=== PATIENT | male | born 1955 | race Caucasian/White ===

== ENCOUNTER → 2017-08-08 11:20 | Outpatient (CLI) | payer BC, SELFPAY ==
[2017-08-08 12:42] LABS: Anion Gap 7 (5-15); BUN 13 mg/dL (7-18); BUN/Creat Ratio 15.5 RATIO (10-20); Calcium,Total 9.2 mg/dL (8.5-10.1); Chloride 107 mmol/L (98-107); Cholesterol 200 mg/dL (200); Creatinine, Serum 0.84 mg/dL (0.70-1.30); EST Glomerular Filtration Rate 98 mL/min (>60); Est Glom Filt Rate - Afr Amer 119 mL/min (>60); Glucose 93 mg/dL (74-106); High Density Lipoprotein 50 mg/dL; PSA,Total - Annual Screen 3.07 ng/mL (0.00-4.00); Potassium 3.9 mmol/L (3.5-5.1); Sodium Level 142 mmol/L (136-145); Triglycerides 79 mg/dL; Very Low Density Lipoprotein 16 mg/dL (5-40)
== END ==
PROVIDERS: Family Provider Family Medicine; PCP Family Medicine; Visit Provider Family Medicine
DX: I10 Essential (primary) hypertension (principal); Z13.220 Encounter for screening for lipoid disorders; Z12.5 Encounter for screening for malignant neoplasm of prostate
CPT/HCPCS: 36415; 80048; 80061; 84153; G0103

== ENCOUNTER → 2017-10-15 12:52 | Outpatient (CLI) | payer BC, SELFPAY ==
--- NOTE | 2017-10-15 12:54 | RAD_ITS ---
STUDY: X-RAY - RIGHT KNEE REASON FOR EXAM: Male, 62 years old. Chronic pain. TECHNIQUE: 4 view(s) of the knee. COMPARISON: None. FINDINGS: Normal visualized distal femur. Normal visualized proximal tibia and fibula. Normal proximal tibiofibular articulation. There is no acute fracture, dislocation or destructive osseous pathology. 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 Normal medial femorotibial compartment. Normal lateral femorotibial compartment. 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 There is no demonstrated joint effusion. The soft tissue structures are unremarkable. RAD/Knee 4 or More Views IMPRESSION: Probable bipartite patella. There is degenerative changes of the knee. Electronically Signed: Edison Aleman DO at 18:10 EDT Tel [phone], Service support ,
[2017-10-15 14:03] LABS: Pathologist Comment May follow
[2017-10-15 14:38] LABS: RBC /Synovial Fluid 0.005 10^6/uL (0); Synovial Fld Mononuclear WBC % 14.5 %; Synovial Fld Polynuclear WBC % 85.5 %
[2017-10-15 15:00] LABS: AUTO B FLUID DILUENT BKGD CT WBC <0.1 RBC <0.01 (W<.1,R<.01); Appearance /Synovial Fluid Cloudy (CLEAR); Color / Synovial Fluid Yellow (Pale Yellow); Source / Synovial Fluid RIGHT KNEE; Source- Body Fluid SYNOVIAL
[2017-10-15 15:26] LABS: Lymph 5 %; Monocyte /Synovial Fluid 6 %; Neutrophil 78 % (0-25); Other Cell /Synovial Fluid 11 %
[2017-10-15 15:27] LABS: Body Fluid QC Type(s) BF1Q,BF2Q
[2017-10-16 09:54] LABS: Pathologist Review Reviewed
== END ==
PROVIDERS: Family Provider Family Medicine; PCP Family Medicine; Visit Provider Orthopaedic Surgery
DX: M25.461 Effusion, right knee (principal); G89.29 Other chronic pain
CPT/HCPCS: 73564; 87070; 87075; 87205; 89050; 89051; 89060

== ENCOUNTER → 2017-11-07 10:42 | Outpatient (CLI) | payer BC, SELFPAY ==
[2017-11-07 12:55] LABS: Amphetamine Urine VISTA NEGATIVE (<1000 ng/mL); Barbiturate Urine VISTA NEGATIVE (< 200 ng/mL); Benzodiazepine Urine VISTA NEGATIVE (< 200 ng/mL); Cocaine Urine VISTA NEGATIVE (< 300 ng/mL); Ecstacy Urine VISTA NEGATIVE (< 500 ng/mL); Methadone Urine VISTA NEGATIVE (< 300 ng/mL); PCP Urine VISTA NEGATIVE (< 25 ng/mL); THC Urine VISTA NEGATIVE (< 50 ng/mL); Vista UDS pH Range 6
== END ==
PROVIDERS: Family Provider Family Medicine; PCP Family Medicine; Visit Provider Anesthesiology Pain Medicine
DX: F11.20 Opioid dependence, uncomplicated (principal)
CPT/HCPCS: 80307

== ENCOUNTER → 2018-06-11 16:24 | Outpatient (CLI) | payer BC, SELFPAY ==
[2017-10-12 08:33] VITALS: BMI 31.1
--- NOTE | 2018-06-11 16:27 | RAD_ITS ---
STUDY: X-RAY CHEST REASON FOR EXAM: Male, 63 years old. Low pulse oximetry. Cough. Shortness of breath. TECHNIQUE: PA and lateral views of the chest. COMPARISON: May 01, 2014. FINDINGS: There is minimally improved inspiratory effort. There is no new mass or infiltrate. Stable calcified granulomata are seen in the left lung base. There is no demonstrated pleural abnormality. Normal size heart. Normal mediastinum and frank. Normal visualized pulmonary arteries. Normal visualized aortic arch and descending thoracic aorta. No visualized osseous changes. There has been intervertebral anterior fusion of lower cervical spine. There is no demonstrated abnormality of the visualized soft tissue structures of the upper abdomen. RAD/Chest PA and Lateral IMPRESSION: 1. Old granulomatous disease without acute cardiopulmonary process. 2. Interval anterior fusion lower cervical spine. Electronically Signed: Edison Aleman DO at 16:48 EST Tel [phone], Service support ,
--- OUTSIDE RECORDS SUMMARY | 2018-07-28 23:36 | XMS RPT_ITS ---
:1955 Author Organization OHIP Support Name Relationship Address Phone MARYSHILANDEN Unavailable [address] + [place] [address] R Unavailable Unavailable Unavailable QUIANA CURTIS Unavailable [address] + [place] [address] MARY, LANDEN Unavailable [address] [phone] [place] [address] R Unavailable Unavailable Unavailable QUIANA CURTIS Unavailable [address] + [place] [address] MARY, LANDEN Unavailable [address] [phone] [place] [address] R Unavailable Unavailable Unavailable QUIANA CURTIS Unavailable [address] + [place] [address] MARY, LANDEN Unavailable [address] [phone] [place] [address] R Unavailable Unavailable Unavailable QUIANA CURTIS Unavailable [address] + [place] [address] MARY, LANDEN Unavailable [address] [phone] [place] [address] R Unavailable Unavailable Unavailable QUIANA CURTIS Unavailable [address] + [place] [address] MARY, LANDEN Unavailable [address] [phone] [place] [address] R Unavailable Unavailable Unavailable QUIANA CURTIS Unavailable [address] + [place] [address] MARY, LANDEN Unavailable [address] [phone] [place] [address] R Unavailable Unavailable Unavailable QUIANA CURTIS Unavailable [address] + [place] [address] Care Team Providers Name Role Phone Natalia Flores Attending Unavailable Sandra, Natalia Referring Unavailable Quijano, Cirilo Primary Care Unavailable Quijano, Cirilo Attending Unavailable Quijano, Cirilo Primary Care Unavailable Dennis, Sandeep Attending Unavailable Quijano, Cirilo Referring Unavailable Quijano, Cirilo Primary Care Unavailable Dennis, Sandeep Attending Unavailable Dennis, Sandeep Referring Unavailable Quijano, Cirilo Primary Care Unavailable Dennis, Sandeep Attending Unavailable Quijano, Cirilo Referring Unavailable Basali, Belem Attending Unavailable Basali, Tasneemman Referring Unavailable Quijano, Cirilo Primary Care Unavailable TerranceBk Attending Unavailable Quijano, Cirilo Referring Unavailable Quijano, Cirilo Primary Care Unavailable PROBLEMS PROBLEMS DATE TYPE CONDITION / CODE ATTENDING STATUS SOURCE 11/07/2017 Unknown F11.20 - Opioid Basali, Ayman Active [place] dependence, Community uncomplicated / Hospital F11.20(ICD-10) Repository 10/15/2017 Unknown M25.461 - Effusion, Sandeep Collins Active [place] right knee / [facility] M25.461(ICD-10) Hospital Repository 10/12/2017 Unknown M17.11 - Unilateral Bk Carlos Active [place] primary [facility] osteoarthritis, Hospital right knee / Repository M17.11(ICD-10) 09/20/2017 Unknown I10 - Essential Cirilo Quijano Active [place] (primary) [facility] hypertension / Hospital I10(ICD-10) Repository PROCEDURES PROCEDURES No Procedure Records FoundRESULTS RESULTS CHEST PA AND LATERAL Observed: 06/11/2018 Status: F Source: [place] 4:27 PM [facility] REPOSITORY [facility] Imaging Services [address] [place] [address] Chest PA and Lateral MR#: [id number] Acct: [id number] Name: GEETA CURTIS Rep #: [id number] : 1955 M 63 From: Edison Aleman DO PCP: Cirilo Quijano MD Status: REG CLI Study: Chest PA and Lateral Date of Exam: 06/11/18 Exam# [id number] Ordering Dr: Natalia Flores AVIATION ORDNANCE OFFICER-C STUDY: X-RAY CHEST REASON FOR EXAM: Male, 63 years old. Low pulse oximetry. Cough. Shortness of breath. TECHNIQUE: PA and lateral views of the chest. COMPARISON: May 01, 2014. FINDINGS: There is minimally improved inspiratory effort. There is no new mass or infiltrate. Stable calcified granulomata are seen in the left lung base. There is no demonstrated pleural abnormality. Normal size heart. Normal mediastinum and frank. Normal visualized pulmonary arteries. Normal visualized aortic arch and descending thoracic aorta. No visualized osseous changes. There has been intervertebral anterior fusion of lower cervical spine. There is no demonstrated abnormality of the visualized soft tissue structures of the upper abdomen. RAD/Chest PA and Lateral IMPRESSION: 1. Old granulomatous disease without acute cardiopulmonary process. 2. Interval anterior fusion lower cervical spine. Electronically Signed: Edison Aleman DO at 16:48 EST Tel [phone], Service support , CC: ODIN [place]; Cirilo Quijano MD Network Architect: Signed URINE DRUG SCREEN Collected: 11/07/2017 Status: F Source: [place] ([place]) 10:[address] [facility] REPOSITORY Order Comment: List of Drugs Taken or Suspected? UNK TYPE CODE TESTS RESULT OUT OF RANGE REFERENCE UNITS LAB L505.0075 TO BE Normal CONFIRMED Result Comment: CONFIRMATORY TESTING FOR ALL POSITIVE URINE DRUG SCREEN RESULTS WILL ONLY BE SENT OUT UPON PHYSICIAN ORDER. VISTA Urine Drug Screen methods provide only preliminary analytical test results. A more specific alternate chemical method must be used in order to obtain a confirmed analytical result. Gas chromatography/mass spectrometery (GC/MS) is the preferred confirmatory method. Clinical consideration and professional judgement should be applied to any drug of abuse test result, particularly when preliminary positive results are used. URINE TCA TESTING MUST BE ORDERED SEPARATELY. USE TEST MNEMONIC: [facility] LAB L505.5005 VISTA UDS PH 6 Normal LAB L505.5015 <1000 ng/mL AMPHETAMINES Normal NEGATIVE LAB L505.5025 < 200 ng/mL BARBITIURATES Normal NEGATIVE LAB L505.5035 < 200 ng/mL BENZODIAZIPINE Normal NEGATIVE LAB L505.5045 < 300 ng/mL COCAINE Normal NEGATIVE LAB L505.5055 < 500 ng/mL ECSTACY Normal NEGATIVE LAB L505.5065 < 300 ng/mL METHADONE Normal NEGATIVE LAB L505.5075 < 300 ng/mL OPIATES Normal NEGATIVE LAB L505.5085 < 25 ng/mL PCP Normal NEGATIVE LAB L505.5095 < 50 ng/mL THC Normal NEGATIVE Performed By: #### L505.5000 #### [facility] [address] [place], [address] MISCELLANEOUS LAB Collected: 11/07/2017 Status: F Source: [place] PROCEDURE 10:[address] [facility] REPOSITORY Order Comment: Test(s) Ordered: URINE TOXICOLOGY [id number] RUN LOWEST TEST TYPE CODE TESTS RESULT OUT OF RANGE REFERENCE UNITS LAB L801.1541 Normal [facility] [place] Result Comment: TEST RESULT UNITS REF INTERVAL [id number] 6+Oxycodone-Bund Amphetamines, Urine Negative ng/mL Vpgmkl=0129 Amphetamine test includes Amphetamine and Methamphetamine. Barbiturate Negative ng/mL Uvorgw=646 Benzodiazepines Negative ng/mL Eambdx=516 Cannabinoids Negative ng/mL Cutoff=20 Cocaine (Metabolite) Negative ng/mL Ubpdaq=132 Opiates Negative ng/mL Wuriaa=162 Opiate test includes Codeine, Morphine, Hydromorphone, Hydrocodone. Oxycodone/Oxymorphone, Urine Negative ng/mL Takdnz=846 Test includes Oxycodone and Oxymorphone TESTING PERFORMED AT [facility]. ORIGINAL REPORT ON FILE IN LAB CONTAINS ADDITIONAL TEST SITE INFORMATION. Performed By: #### L801.1541 #### [facility] [address] [place], [address] ORTHOPEDIC VISIT Observed: 10/18/2017 Status: F Source: [place] REPORT 8:[address] [facility] REPOSITORY [facility] Orthopaedics AND Sports Medicine [facility] [place] [address] OFFICE VISIT Date of Service: 10/15/17 MR#: [id number] Acct: [id number] Name: GEETA CURTIS Rep #: [id number] : 1955 Provider: Sandeep Collins DO Age/Sex: 62/M [place] [facility] [place] [place]: Signed Intake Intake Visit Reasons: RIGHT KNEE Is patient in pain?: Yes Allergies streptomycin [Streptomycin] Allergy (Verified 10/15/17 13:38) Other Tetanus Vaccines and Toxoid [Tetanus Vaccines AND Toxoid] Allergy (Verified 10/15/17 13:38) Other Medications oxycodone-acetaminophen 5 mg-325 mg tablet PO 28 Days #56 10/12/17 [History Confirmed 10/12/17] PFSH Medical History Knee pain (Acute) Neck pain (Acute) Shoulder pain (Acute) Surgical History Hx of neck surgery (Acute) Social History Smoking Status: Never smoker alcohol intake: never HPI RIGHT KNEE: Details: GEETA CURTIS is a 62 year old M here today for right knee pain. He states that he has had right knee pain since with no known injury. Patient notes he was gardening, showered and felt a pop in his knee. He had significant swelling and went to his PCP. Patient had 90cc of yellow fluid aspirated from his knee. He was also given a cortisone injection. Patient complains of anterior shoulder pain. Patient notes that he feels better and is able to weightbear. He notes his swelling has increased. Patient has used an ADRYAN wrap. He denies any xrays or MRI. .denies ROS Const Reports system reviewed and no additional complaints, except as docu Eyes Reports system reviewed and no additional complaints, except as docu ENT Reports system reviewed and no additional complaints, except as docu Card Reports system reviewed and no additional complaints, except as docu Resp Reports system reviewed and no additional complaints, except as docu GI Reports system reviewed and no additional complaints, except as docu Reports system reviewed and no additional complaints, except as docu Musc Reports joint pain Skin/Breast Reports system reviewed and no additional complaints, except as docu Neuro Yes system reviewed and no additional complaints, except as docu Psych Reports system reviewed and no additional complaints, except as docu Endo Reports system reviewed and no additional complaints, except as docu Ortho Exam Right Knee Contralateral Normal: Yes Swelling: Yes Homans Sign: No 2+: Effusion Knee ROM: Yes ROM-Flexion 0-140 (3-110) Examination: Yes Med jt line tenderness, Yes Crepitus, Yes Pain with flexion, Yes Pain with extention, Yes TTP inf pole patella Quad Atrophy: No Stability: NML: Anterior Drawer, NML: Jason, NML: Posterior Drawer, NML: Valgus 0, NML: Varus 0, NML: Varus 30, NML: Dial 90, NML: Dial 30, 1+: Valgus 30 Popliteal Adenopathy: No Patella Translation: 1 Apprehension with Lateral Translation: No Patellar Tilt Normal: Yes Patella Grind: Yes KNEE: Patient is alert oriented 3 no acute distress. Appropriate eye contact affect. Walks an antalgic gait. Otherwise intact from L1-S1 distributions. He has a +2 pulses. Patient has a +2 effusion to his right knee. He has a grade 1 MCL opening at 30 otherwise stable. He has patellofemoral crepitus and tender to palpation across medial joint line. He has no obvious popliteal masses or calf pain negative Homans. X-rays: Evaluated myself the patient-patient has medial compartment narrowing but he has patellofemoral arthrosis large knee effusion noted. Left Knee Skin/Wound: Yes CDI Contralateral Normal: Yes Swelling: No Homans Sign: No Quad Atrophy: No Stability: NML: Anterior Drawer, NML: Jason, NML: Posterior Drawer, NML: Valgus 0, NML: Valgus 30, NML: Varus 0, NML: Varus 30, NML: Dial 90, NML: Dial 30 Patella Translation: 1 Apprehension with Lateral Translation: No Patellar Tilt Normal: Yes Patella Grind: No Office Procedures Ortho Injections Injections Yes Knee Right Details: Obtained consent for injection. Under sterile conditions, injected the patients right knee with a 10cc cocktail of 8cc bupivacaine and 2cc kenalog. The patient tolerated the injection well without any noted complication. Patient should call our office if redness develops, pain worsens or if they have any concerns. Office Meds Mary Performing Provider: Sandeep Collins DO Administered by: Sandeep Collins DO on 10/15/17 13:52 Dose Route Admin Location Lot Number Expiration Date [facility] Manager 2 mg IM right knee [id number] 10/30/18 4852-2312-47 [employer] Assessment AND Plan Problems 1. Effusion of right knee joint M25.461 2. Primary osteoarthritis of right knee M17.11 3. Chronic pain of right knee M25.561; G89.29 Plan Assessment: Right knee effusion right knee pain right knee osteoarthritis greatest across the patellofemoral joint. Plan: Point time patient is requesting a repeat aspiration. I am going to send crystals down for evaluation see if there is an inflammatory response related to gout pseudogout and rule out infection. We are not going to put any further steroid into the knee as the patient's recently had a steroid injection done by an outside provider. Patient agrees with plan. I told the patient ultimately probably need to have a total knee arthroplasty versus patellofemoral arthroplasty. I think the base of his medial joint space narrowing a total knee will be more warranted for him the patient is not interested in at this point time. Patient is aware that I am leaving the practice in December and that if he required any operative intervention to include arthroplasty we would have to send him out to another provider. For an hour and going proceed with the aspiration. Patient was counseled and consented for right knee aspiration. He was subsequent prepped and draped in usual fashion. Using a superior lateral injection we pulled off roughly 40 cc of clear-appearing joint effusion. Compressive wrap was then applied. Fluid was then sent down for fluid analysis. Please see any gross abnormalities I will contact the patient. For now see the patient back in 6 weeks. If he remains symptomatic consideration for a repeat aspiration and perhaps a secondary steroid injection to control control inflammatory response. Ultimately if he gets recurrent effusions he may need something operatively Orders Orders: Medications Discontinued: Kenalog (triamcinolone acetonide) Discontinu2 mg (0.2 mL) IM ONCE NS M25.461 Cassandra Villegas ed Reason: Office Medication has been Document ed as given Coding Level of Care Code Off vis,est,level 4 Diagnoses Effusion of right knee joint M25.461 Primary osteoarthritis of right knee M17.11 Osteoarthritis location: knee Osteoarthritis type: primary Laterality: right Chronic pain of right knee M25.561; G89.29 Chronicity: chronic Additional Codes hospice executive director.knee ([id number]) 10/18/17 0821 <Electronically signed by Sandeep Collins DO> Date Sandeep Collins DO Cosigner Signature: Date (if applicable) CC: SYNOVIAL FLUID RBC, Collected: 10/15/2017 Status: F Source: [place] WBC AND DIFF 2:[address] [facility] REPOSITORY TYPE CODE TESTS RESULT OUT OF RANGE REFERENCE UNITS LAB L200.5050 0.000-0.000 10 3 uL High SYN Tot 10.[address] Result Comment: This is the Total Number of Nucleated Cell Types in the Body Fluid. LAB L200.5100 0 10 6/uL High SYNOVIAL RBC 0.005 LAB L200.5200 0.000-0.002 10 3uL High SYNOVIAL WBC 9.9420 LAB L200.5260 % SYBF PMN Normal WBC% 85.5 LAB L200.5270 10 3/ul SYBF PMN Normal WBC# 9.709 LAB L200.5280 % SYBF MN Normal WBC% 14.5 LAB L200.5800 PATH Normal COM/SYFL May follow LAB L200.4600 SYNOVIAL Normal SOURCE RIGHT KNEE LAB L200.4900 Pale Yellow SYNOVIAL Normal COLOR Yellow LAB L200.5000 CLEAR SYNOVIAL Normal EDNA. Cloudy LAB L200.5300 0-25 % High NEUTROPHIL 78 LAB L200.5400 % LYMPH Normal 5 LAB L200.5500 % MONO Normal 6 LAB L200.5700 % OTHER Normal CELL /SYN 11 Performed By: #### L200.0400, L200.4175, M100.1300 #### [facility] [address] [place], [address] CRYSTALS, BODY FLUID Collected: 10/15/2017 Status: C Source: [place] 2:[address] [facility] REPOSITORY TYPE CODE TESTS RESULT OUT OF RANGE REFERENCE UNITS LAB L200.4200 Normal SEE PATH REV CRYSTALS/BF LAB L200.4225 Normal SYNOVIAL SOURCE/BF LAB L200.6020 Normal PATH Reviewed REV Result Comment: Negative for malignant cells and crystals. Acute inflammation. Javier Ellsworth M.D. 10/16/17 AMENDED REPORT 10/16/17 0953 PATH REV previously reported as: Will follow Performed By: #### L200.0400, L200.4175, M100.1300 #### [facility] [address] [place], [address] Observed: 10/15/2017 Status: F Source: [place] CULTURE, BODY FLUID 2:[address] [facility] REPOSITORY List Antibiotics Last 48 Hours? UNK List Antibiotics to be Started? UNK Gram Stain Centrifuged Specimen? Culture performed on centrifuged specimen Gram Stain 3+ White Blood Cells No organisms seen Body Fluid Cult NO GROWTH IN 14 DAYS Cult, Anaerobic No growth in 5 days. Performed By: #### L200.0400, L200.4175, M100.1300 #### [facility] [address] [place], [address] KNEE 4 OR MORE Observed: 10/15/2017 Status: F Source: [place] VIEWS 12:[address] [facility] REPOSITORY [facility] Imaging Services [address] [place] [address] Knee 4 or More Views MR#: [id number] Acct: [id number] Name: DEBRA CURTISREY Milagro Rep #: [id number] : 1955 M 62 From: Edison Aleman DO PCP: Cirilo Quijano MD Status: REG CLI Study: Knee 4 or More Views Date of Exam: 10/15/17 Exam# [id number] Ordering Dr: Sandeep Collins DO STUDY: X-RAY - RIGHT KNEE REASON FOR EXAM: Male, 62 years old. Chronic pain. TECHNIQUE: 4 view(s) of the knee. COMPARISON: None. FINDINGS: Normal visualized distal femur. Normal visualized proximal tibia and fibula. Normal proximal tibiofibular articulation. There is no acute fracture, dislocation or destructive osseous pathology. 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 Normal medial femorotibial compartment. Normal lateral femorotibial compartment. 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 There is no demonstrated joint effusion. The soft tissue structures are unremarkable. RAD/Knee 4 or More Views IMPRESSION: Probable bipartite patella. There is degenerative changes of the knee. Electronically Signed: Edison Aleman DO at 18:10 EDT Tel [phone], Service support , CC: Cirilo Quijano MD; Sandeep Collins DO Network Architect: Signed URGENT CARE VISIT Observed: 10/12/2017 Status: F Source: [place] REPORT 9:[address] [facility] REPOSITORY [facility] [address] [place] [address] [address] [place] [address] OFFICE VISIT Date of Service: 10/12/17 MR#: [id number] Acct: [id number] Name: GEETA CURTIS Rep #: [id number] : 1955 Provider: Bk BENITES Age/Sex: 62/M [place] [facility] [place] Status: Signed Intake Vital Signs10/12/17 Height 6 ft Intake Visit Reasons: right foot injury Is patient in pain?: Yes (R knee ) Allergies streptomycin [Streptomycin] Allergy (Verified 10/12/17 08:34) Other Tetanus Vaccines and Toxoid [Tetanus Vaccines AND Toxoid] Allergy (Verified 10/12/17 08:34) Other Medications oxycodone-acetaminophen 5 mg-325 mg tablet PO 28 Days #56 10/12/17 [History Confirmed 10/12/17] PFSH Medical History Knee pain (Acute) Neck pain (Acute) Shoulder pain (Acute) Surgical History Hx of neck surgery (Acute) Social History Smoking Status: Never smoker alcohol intake: never HPI HPI Details: GEETA CURTIS, is a 62 M who presents to the office today for right knee pain and swelling. Patient states that yesterday he was working out at the gym and then did some gardening work earlier in the day and then later noticed right knee pain and swelling. Patient states that he does have a history of osteoarthritis requiring drainage and cortisone injections. Patient reports the pain to the knee as a 6-7 out of 10 particularly when walking on it and came to the office today using crutches. Denies any trauma or injury to that leg. Patient denies any radiation of the pain or numbness/tingling into the leg. No calf tenderness or recent prolonged immobility. No other associated symptoms or alleviating/aggravating factors. ROS Const Constitutional: No chills, fever(s), fatigue or abnormal sleep pattern Resp Respiratory: No shortness of breath or chest congestion Cardio Cardiology: No chest pain at rest, chest pain with exertion or shortness of breath Musc Musculoskeletal: Positive for abnormal walking, joint pain and joint swelling Skin Skin: No wounds or lesions Neuro Neurology: Positive for abnormal walking; no behavioral changes or confusion Psych Psychiatric: No behavioral changes, No confusion, No abnormal sleep pattern Endo Endocrine: No fatigue Exam Const General: cooperative, healthy appearing Resp Effort AND Inspection: normal respiratory effort Auscultation: Bilateral: Clear to Auscultation Cardio Palpation: normal PMI Rate: regular rate Rhythm: regular rhythm Musc Musculoskeletal: Yes joint tenderness and decreased ROM; no joint redness or joint warmth Skin General: no rashes or lesions noted Neuro General: alert, CN's II-XI intact bilaterally Extrem Other: Right knee with a mild amount of effusion particularly superior to the knee joint. Pain to palpation of the tibial plateau. No warmth or redness. Patient maintains near full range of motion with pain. Negative anterior posterior drawer test as well as negative valgus and varus stress. Psych Appearance: grossly normal Mental Status: mental status grossly normal Assessment AND Plan Problems 1. Effusion of right knee joint M25.461 Status Acute 2. Primary osteoarthritis of right knee M17.11 Status Acute Plan Patient has been advised to use ibuprofen for the pain and to minimize activities with high impact. Also advised on rest, ice, compression and elevation. Patient advised to use Adryan bandage which she has at home. Patient advised to follow- up with [facility]. Educated on potential red flags and appropriate report to the ED. Patient verbalized understanding of all the above. This note was generated with [employer] dictation software. It may contain incorrect words, spelling, and punctuation that were not noted in checking the note before signing. Orders Referrals: Coding Level of Care Code Off vis,new,level 3 Diagnoses Effusion of right knee joint M25.461 Primary osteoarthritis of right knee M17.11 Osteoarthritis location: knee Osteoarthritis type: primary Laterality: right 10/12/17 0938 <Electronically signed by Bk BENITES> Date Bk BENITES Cosigner Signature: Date (if applicable) CC: BASIC METABOLIC Collected: 08/08/2017 Status: F Source: [place] PROFILE (BMP) 11:[address] [facility] REPOSITORY Order Comment: Order Date: 07/31/17 Order Info: [id number] - BMP Order Info: [id number] - LIP[place] Order Info: 2857-1 - PSA TYPE CODE TESTS RESULT OUT OF RANGE REFERENCE UNITS LAB L501.0100 74-106 mg/dL Normal GLU 93 LAB L501.1000 7-18 mg/dL Normal BUN 13 LAB L501.1100 0.70-1.30 mg/dL Normal 0.84 CREAT,SERUM Result Comment: The validity of the calculated GFR AND GFRAA in patients over 70 years has not been determined. Clinical correlation is essential. LAB L501.1110 >60 mL/min Normal EST GFR 98 Result Comment: Non- GFR Calc LAB L501.1115 >60 mL/min Normal EST GFR - AA 119 Result Comment: GFR Calc LAB L501.1300 10-20 RATIO Normal BUN/CRE 15.5 LAB L501.2200 8.5-10.1 mg/dL CA Normal 9.2 LAB L501.5300 136-145 mmol/L NA Normal 142 LAB L501.5600 3.5-5.1 mmol/L K Normal 3.9 LAB L501.5900 98-107 mmol/L CL Normal 107 LAB L501.6100 21.0-32.0 mmol/L Normal CO2 28.0 LAB L501.6200 5-15 Normal GAP 7 Performed By: #### L500.2500, L500.4100, L501.9910 #### [facility] [address] [place], [place], [address] LIPID PROFILE Collected: 08/08/2017 Status: F Source: [place] 11:[address] [facility] REPOSITORY Order Comment: Order Date: 07/31/17 Order Info: [id number] - BMP Order Info: [id number] - LIPID Order Info: [id number] - PSA TYPE CODE TESTS RESULT OUT OF RANGE REFERENCE UNITS LAB L501.4900 200 mg/dL Normal CHOL 200 Result Comment: <200 mg/dL Desirable 200-240 mg/dL Borderline >240 mg/dL High Risk LAB L501.5000 mg/dL Normal TRIG 79 Result Comment: The drugs N-Acetylcysteine and Metamizole may falsely depress this assay. Serum Triglycerides Reference Interval Normal <150 mg/dL Borderline high 150 - 199 mg/dL High 200 - 499 mg/dL Very High > or = 500 mg/dL LAB L501.6400 mg/dL Normal HDL 50 Result Comment: The drugs N-Acetylcysteine and Metamizole may falsely depress this assay. Reference Range HDL <40 mg/dL Low HDL Cholesterol HDL >or= 60 mg/dL High HDL Cholesterol LAB L501.6500 0-130 mg/dL High LDL 134 LAB L501.6600 5-40 mg/dL Normal VLDL 16 Performed By: #### L500.2500, L500.4100, L501.9910 #### [facility] [address] [place], [place], [address] PSA,TOTAL - ANNUAL Collected: 08/08/2017 Status: F Source: CHERRI VILLASENOR 11:[address] [facility] REPOSITORY Order Comment: Order Date: 07/31/17 Order Info: [id number] - BMP Order Info: [id number] - LIPID Order Info: [id number] - PSA TYPE CODE TESTS RESULT OUT OF RANGE REFERENCE UNITS LAB L501.9910 0.00-4.00 ng/mL Normal PSA,TOT 3.07 SCREEN Result Comment: This test was performed using the TPSA assay method for the Coinex-IO chemistry system. Values obtained with different assay methods cannot be used interchangably. When changing PSA assays in the course of monitoring a patient, additional sequential testing should be carried out to confirm baseline values. Performed By: #### L500.2500, L500.4100, L501.9910 #### [facility] [address] [place], [address] ALLERGIES ALLERGIES DATE TYPE / CODE NAME / CODE REACTION SEVERITY SOURCE 10/15/2017 Drug Tetanus Other Unknown [facility] Allergy/416 [facility] 550592(SNOM Toxoid/[id number] Repository ED CT) 19(RXNORM) 10/15/2017 Drug streptomycin/F0 Other Unknown [facility] Allergy/416 72687386(RXNORM Hospital 168493(SNOM ) Repository ED CT) ENCOUNTERS ENCOUNTERS ADMIT/DISCHARGE ACCOUNT ADMITTING ENCOUNTER LOCATION SOURCE NUMBER CLASS 06/11/2018 [id number] Ambulatory [place] Cherri 9 [facility] ing:MTRAD Repository 12/03/2017 [id number] Ambulatory BMSBuilding:B [place] 5 [facility] Repository 11/07/2017 [id number] Ambulatory Cherri Leola 8 [facility] ing:LAB Repository 10/15/2017 [id number] Ambulatory [place]ola Cherri 3 [facility] ing:HPRAD Repository 10/15/2017/ [id number] Ambulatory BMSBuilding:B Le[place] 8 7 [facility] Repository 10/12/2017/ [id number] Ambulatory BMSBuilding:B Cherri 8 2 [facility] Repository 08/08/2017 [id number] Ambulatory Leola Leola 6 [facility] ing:MFPLAB Repository PAYERS PAYERS ENCOUNTER GUARANTOR PAYER SUBSCRIBER SOURCE 06/11/2018 GEETA Luna Leola [id number] Insurance:[facility]ALTHEMPRiddle HospitalZACHDOB: [facility] y Number: [id number] Repository [place] [address]Ohw: Date:3306-75-26[id number] SUNSHINE () [address]XM: 06/11/2018 Secondary NOT GIVENUNK Le[place] Insurance:SELF PAY [facility] Number: Effective Repository Date:2018-06-11 12/03/2017 GEETA Luna Cherri [id number] Insurance:ANTHEMPolic SIEGENTHALERDOB: Community CR y Number: [id number] Repository [place] [address]Jer: Date:9893-74-65NB [phone] [id number] SUNSHINE -2 () [address]FF: 12/03/2017 Secondary NOT GIVENUNK Cherri Insurance:SELF PAY [facility] Number: Effective Repository Date:2017-11-30 11/07/2017 GEETA Humphrey Primary QUIANA Luna Cherri [id number] Insurance:ANTHEMPolic SIEGENTHALERDOB: Community CR y Number: [id number], [id number] Repository [place] [address]Ecv: Date:3342-04-63AY [phone] [id number] SUNSHINE -2 () [address]EZ: 11/07/2017 Secondary NOT GIVENUNK [place] Insurance:SELF PAY [facility] Number: Effective Repository Date:2017-11-07 10/15/2017 GEETA Luna Cherri [id number] Insurance:ANTHEMPolic SIEGENTHALERDOB: Community CR y Number: [id number] Repository [place] [address]Fsq: Date:2309-00-45MP [phone] IVETH AGEE -2 () [address]RZ: 10/15/2017 Secondary NOT GIVENUNK Cherri Insurance:SELF PAY [facility] Number: Effective Repository Date:2017-10-15 10/15/2017 GEETA Humphrey Primary QUIANA Luna Cherri [id number] Insurance:ANTHEMPolic SIEGENTHALERDOB: Community CR y Number: [id number], [id number] [place]ository [place] [address]Lxp: Date:6045-43-84QI [phone] [id number] SUNSHINE -2 () [address]BC: 10/15/2017 Secondary NOT GIVENUNK [place] Insurance:SELF PAY [facility] Number: Effective Repository Date:2017-10-15 10/12/2017 GEETA Humphrey Primary QUIANA Luna Leola [id number] Insurance:ANTHEMPolic SIEGENTHALERDOB: [facility] [address] y Number: [id number], [id number] Repository [place] [address]Ebq: Date:7252-12-44MQ [phone] [id number] SUNSHINE2 () [address]UI: 10/12/2017 Secondary NOT GIVENUNK Leola Insurance:SELF PAY [facility] Number: Effective Repository Date:2017-10-12 08/08/2017 GEETA Humphrey Primary QUIANA Luna Leola [id number] Insurance:ANTHEMPolic SIEGENTHALERDOB: [facility] [address] y Number: [id number], [id number] [place]ository [place] [address]Xro: Date:5242-60-42AI [phone] [id number], [place] Saturnino2 () [address]FG: 08/08/2017 Secondary NOT GIVENUNK [place] Insurance:SELF PAY [facility] Number: Effective Repository Date:2017-08-08
== END ==
PROVIDERS: Family Provider Family Medicine; PCP Family Medicine; Referring Provider Nurse Practitioner Adult Health; Visit Provider Nurse Practitioner Adult Health
DX: R06.02 Shortness of breath (principal); R05 Cough
CPT/HCPCS: 71046

== ENCOUNTER → 2018-11-04 13:50 | Outpatient (CLI) | payer BC, SELFPAY ==
[2018-11-04 16:02] LABS: Amphetamine Urine VISTA NEGATIVE (<1000 ng/mL); Barbiturate Urine VISTA NEGATIVE (< 200 ng/mL); Benzodiazepine Urine VISTA NEGATIVE (< 200 ng/mL); Cocaine Urine VISTA NEGATIVE (< 300 ng/mL); Ecstacy Urine VISTA NEGATIVE (< 500 ng/mL); Methadone Urine VISTA NEGATIVE (< 300 ng/mL); PCP Urine VISTA NEGATIVE (< 25 ng/mL); THC Urine VISTA NEGATIVE (< 50 ng/mL); Vista UDS pH Range 6
== END ==
PROVIDERS: Family Provider Family Medicine; PCP Family Medicine; Referring Provider Anesthesiology Pain Medicine; Visit Provider Anesthesiology Pain Medicine
DX: F11.20 Opioid dependence, uncomplicated (principal)
CPT/HCPCS: 80307

== ENCOUNTER → 2019-01-07 11:40 | Outpatient (CLI) | payer BC, SELFPAY ==
[2017-10-12 08:33] VITALS: BMI 31.1
[2019-01-07 13:37] LABS: Absolute Lymphocyte Count 1.69 X10^3/ul (0.83-4.51); Absolute Neutrophil Count 3.5 X10^3/uL (2.0-7.7); Basophil# 0.04 X10^3/uL; Basophil% 0.7 % (0-1); Eosinophil# 0.12 X10^3/uL; Hematocrit 48.4 % (40-54); Hemoglobin 15.8 g/dl (13.0-16.5); Lymphocyte # 1.69 X10^3/ul (4.0); Lymphocyte % 27.5 % (19-41); Mean Corp Hgb Conc 32.6 g/gl (32-36); Mean Platelet Vol. 11.4 fl (6.2-12.0); Monocyte# 0.76 X10^3/uL; Monocyte% 12.4 % (0-10); Neutrophil % 56.9 % (47-70); Platelet Count 213 K/mm3 (150-450); RBC Distribution Width CV 13.3 % (11.6-14.6); RBC Distribution Width SD 44.7 fl (35.1-43.9); Red Blood Count 5.26 M/mm3 (4.6-6.2); White Blood Count 6.1 K/mm3 (4.4-11.0)
[2019-01-07 13:38] LABS: POSITIVE COUNT NO; POSITIVE DIFFERENTIAL NO; POSITIVE MORPHOLOGY NO
[2019-01-07 14:05] LABS: Anion Gap 7 (5-15); BUN 13 mg/dL (7-18); BUN/Creat Ratio 14.6 RATIO (10-20); Calcium,Total 9.8 mg/dL (8.5-10.1); Chloride 101 mmol/L (98-107); Creatinine, Serum 0.89 mg/dL (0.70-1.30); EST Glomerular Filtration Rate 91 mL/min (>60); Est Glom Filt Rate - Afr Amer 111 mL/min (>60); Glucose 105 mg/dL (74-106); PSA,Total - Annual Screen 4.04 ng/mL (0.00-4.00); Potassium 4.2 mmol/L (3.5-5.1); Sodium Level 136 mmol/L (136-145); Thyroid Stim Hormone (TSH) 0.92 uIU/mL (0.358-3.74)
== END ==
PROVIDERS: Family Provider Family Medicine; PCP Family Medicine; Visit Provider Family Medicine
DX: I10 Essential (primary) hypertension (principal); R53.83 Other fatigue; Z12.5 Encounter for screening for malignant neoplasm of prostate
CPT/HCPCS: 36415; 80048; 84153; 84443; 85025; G0103

== ENCOUNTER → 2019-05-22 09:41 | Outpatient (CLI) | payer BC, SELFPAY ==
[2017-10-12 08:33] VITALS: BMI 31.1
[2019-05-22 13:07] LABS: Cholesterol 207 mg/dL (200); High Density Lipoprotein 44 mg/dL; Triglycerides 169 mg/dL; Very Low Density Lipoprotein 34 mg/dL (5-40)
== END ==
PROVIDERS: Family Provider Family Medicine; PCP Family Medicine; Referring Provider Family Medicine; Visit Provider Family Medicine
DX: E78.5 Hyperlipidemia, unspecified (principal)
CPT/HCPCS: 36415; 80061

== ENCOUNTER → 2019-09-09 14:58 | Outpatient (CLI) | payer BC, SELFPAY ==
[2017-10-12 08:33] VITALS: BMI 31.1
[2019-09-09 17:04] LABS: Amphetamine Urine VISTA NEGATIVE (<1000 ng/mL); Barbiturate Urine VISTA NEGATIVE (< 200 ng/mL); Benzodiazepine Urine VISTA NEGATIVE (< 200 ng/mL); Cocaine Urine VISTA NEGATIVE (< 300 ng/mL); Ecstacy Urine VISTA NEGATIVE (< 500 ng/mL); Methadone Urine VISTA NEGATIVE (< 300 ng/mL); PCP Urine VISTA NEGATIVE (< 25 ng/mL); THC Urine VISTA NEGATIVE (< 50 ng/mL); Vista UDS pH Range 6
== END ==
PROVIDERS: PCP Family Medicine; Referring Provider Anesthesiology Pain Medicine; Visit Provider Anesthesiology Pain Medicine
DX: F11.20 Opioid dependence, uncomplicated (principal)
CPT/HCPCS: 80307

== ENCOUNTER → 2019-11-05 09:16 | Outpatient (CLI) | payer BC, SELFPAY ==
[2017-10-12 08:33] VITALS: BMI 31.1
[2019-11-05 10:17] LABS: ALB/GLOB Ratio 1.4 RATIO (0.9-2.4); AST(SGOT) 25 U/L (15-37); Alanine Aminotransfer ALT/SGPT 33 U/L (16-61); Albumin, Serum 4.1 g/dL (3.2-5.0); Alkaline Phosphatase 88 U/L (45-117); Anion Gap 7 (5-15); BUN 14 mg/dL (7-18); Calcium,Total 9.2 mg/dL (8.5-10.1); Chloride 105 mmol/L (98-107); Cholesterol 123 mg/dL (200); Creatinine, Serum 0.88 mg/dL (0.70-1.30); EST Glomerular Filtration Rate 93 mL/min (>60); Est Glom Filt Rate - Afr Amer 113 mL/min (>60); Glucose 106 mg/dL (74-106); High Density Lipoprotein 47 mg/dL; Potassium 4.5 mmol/L (3.5-5.1); Protein, Total 7.1 g/dL (6.4-8.2); Sodium Level 138 mmol/L (136-145); Triglycerides 71 mg/dL; Very Low Density Lipoprotein 14 mg/dL (5-40)
== END ==
PROVIDERS: PCP Family Medicine; Visit Provider Family Medicine
DX: R97.20 Elevated prostate specific antigen [PSA] (principal); I10 Essential (primary) hypertension
CPT/HCPCS: 36415; 80053; 80061; 84153

== ENCOUNTER → 2019-11-27 10:46 | Outpatient (CLI) | payer BC, SELFPAY ==
--- NOTE | 2019-11-27 10:49 | RAD_ITS ---
STUDY: X-RAY - ABDOMEN/PELVIS REASON FOR EXAM: Male, 64 years old. Abdominal bloating. TECHNIQUE: AP supine and upright views of the abdomen and pelvis. COMPARISON: None. FINDINGS: Normal visualized lung bases. There is an unremarkable bowel gas pattern. There is no evidence of obstruction or small bowel dilatation. There is no air fluid levels. There is no demonstrated free abdominal air. The visualized liver, spleen and kidneys are grossly normal in size and morphology. Cholecystectomy clips are seen in the right upper quadrant. There is no evidence of mass or suspicious calcifications. Normal soft tissue structures. Normal visualized osseous structures. RAD/Abd Inc Decub and/or Erect IMPRESSION: No evidence of acute intra-abdominal process. Electronically Signed: Edison Aleman DO at 19:55 EDT Tel [phone], Service support ,
== END ==
PROVIDERS: PCP Family Medicine; Referring Provider Family Medicine; Visit Provider Family Medicine
DX: R14.0 Abdominal distension (gaseous) (principal)
CPT/HCPCS: 74019

== ENCOUNTER 2019-12-23 07:18 | Day surgery (SDC) | payer BC, SELFPAY ==
[2019-12-15 09:17] VITALS: BMI 31.1
--- NOTE | 2019-12-15 10:50 | HP_ITS ---
Intake Vital Signs 12/15/19 Height 6 ft 12/15/19 Weight: 234 lb 12/15/19 BMI 31.7 12/15/19 BP 157/94 H 12/15/19 Blood Pressure Location Rt brachial 12/15/19 Position Sitting 12/15/19 Respiration 18 12/15/19 Pulse 70 12/15/19 Pulse Source Monitor 12/15/19 Temp 97.5 F L 12/15/19 Temp Source Temporal 12/15/19 Pulse Oximetry (%) 96 12/15/19 Oxygen Delivery Method room air Intake Visit Reasons: CSCOPE Chief Complaint: Consult for c-scope Pattern Marking Supervisor Required: Yes Is patient in pain?: No Allergies streptomycin [Streptomycin] Allergy (Verified 12/15/19 09:12) Other Tetanus Vaccines and Toxoid [Tetanus Vaccines & Toxoid] Allergy (Verified 12/15/19 09:12) Other Medications oxycodone-acetaminophen 5 mg-325 mg tablet PO 28 Days #56 10/12/17 [History Confirmed 12/15/19] atorvastatin 40 mg tablet 40 mg PO DAILY 12/15/19 [History Confirmed 12/15/19] lisinopril 20 mg tablet 20 mg PO DAILY 12/15/19 [History Confirmed 12/15/19] omeprazole 20 mg tablet,delayed release 20 mg PO DAILY #60 tab 12/15/19 [Rx Confirmed 12/15/19] PFSH Medical History (Updated 12/15/19 @ 09:02 by Sarah Ortiz) Acid reflux (Acute) Bloating (Acute) Knee pain (Acute) Neck pain (Acute) Shoulder pain (Acute) Surgical History (Updated 12/15/19 @ 09:04 by Sarah Ortiz) History of laparoscopic cholecystectomy (Acute) History of repair of rotator cuff (Acute) Hx of neck surgery (Acute) Family History (Updated 12/15/19 @ 09:04 by Sarah Ortiz) Father Hypertension High cholesterol Social History (Updated 12/15/19 @ 10:[address] Emery Correa MD) Smoking Status: Never smoker alcohol intake: never HPI HPI HPI: GEETA CURTIS, is a 64 M who presents to the office today for HPI HPI Surgical H&P: Yes HPI: GEETA CURTIS, is a 64 M who presents to the office today for EGD and colonoscopy. The patient reports that he had an episode recently of bloating and abdominal pain. He does have acid reflux as well and he is not taking any medication for this. He is having no nausea or vomiting he reports that the bloating has resolved. He is also here for screening colonoscopy. The patient is having no blood in his stool or abdominal pain and his last colonoscopy was 15 years ago and was normal. He has no family history of colon cancer. ROS General General: Yes weight change; no appetite, fatigue, colon cancer, breast cancer or weakness HEENT HEENT: No difficulty swallowing, eye injury, eye surgery, swollen glands or hoarseness Endo Endocrine: No thyroid disease, diabetes mellitus, thyroid cancer, Hair loss, heat intolerance or cold intolerance Skin Skin: Yes changing moles; no rash Breast Breast: No left breast lump, right breast lump, nipple discharge, breast pain, abnormal mammogram, abnormal US or breast enlargement Musc Musculoskeletal: Yes back problems; no arthritis, rheumatoid arthritis, gout or joint pain Cardio Cardiovascular: Yes high blood pressure; no murmur, pacemaker, heart disease, atrial fibrillation, heart attack, heart stent, palpitations, shortness of breat with exertion or chest pain Psych Psychiatric: No depression, anxiety or hearing voices Resp Respiratory: No shortness of breath, No sleep apnea, No cough, No COPD, No asthma, No emphysema, No wheezing Gastro Gastrointestinal: No abdominal pain, No nausea or vomiting, Yes diarrhea, No constipation, No blood in stool, Yes acid reflux, No hemorrhoids, No ulcers, No gallbladder problem, No black,tarry stools [place] Hematologic: No blood thinners, No blood disorders, No bleeding, No anemia, No blood clots Neuro Neurologic: No system reviewed and no additional complaints, except as docu, No as per HPI, No abnormal walking, No abnormal hearing, No abnormal movements, No abnormal speech, No behavioral changes, No burning sensations, No confusion, No seizure-like activity, No unsteadiness, No dizziness, No localized weakness, No frequent falls, No headache(s), No lack of coordination, No loss of vision, No memory loss, No numbness, No other visual disturbances, No radiating pain, No restless legs, No sensory deficit, No fainting, No tingling, No tremor(s), No weakness, No other Exam Const General: cooperative Orientation: alert, oriented x3 Chest Breast Palpation: No nipple discharge Resp Effort & Inspection: normal respiratory effort Auscultation: clear to auscultation bilaterally Cardio Rate: regular rate Rhythm: regular rhythm Heart Sounds: no murmurs GI Inspection: non-distended Palpation: soft, nontender Assessment & Plan Problems 1. Screen for colon cancer Z12.11 2. Gastroesophageal reflux disease, esophagitis presence not specified K21.9 Plan The patient has GERD and his reflux is not controlled and he had an episode of bloating abdominal pain. He may have a gastric ulcer. I will start him on a PPI and I recommended adding EGD to his colonoscopy. Patient is due for screening colonoscopy as his last one was 15 years ago. No polyps were found. He has no family history of colon cancer. I explained endoscopy in detail to the patient. I explained the risks including but not limited to stroke or heart attack with anesthesia, perforation of the GI tract, bleeding, infection. I explained that any of these could necessitate further emergency surgery. The patient understands and all questions were answered sufficiently. The patient wishes to proceed with procedure. We discussed the current risks associated with COVID-19. While it is understood that there is a community spread of COVID-19, the risk of rocky COVID-19 while at [facility] ([facility]) is very low; however, the risk cannot be completely mitigated because of the community spread of the disease. We discussed in detail the risk of exposure to and/or potential harm posed by the COVID-19 virus with having a surgery/procedure at this time versus the risk of delaying the surgery/procedure. It is not possible to know either the risk of delaying the surgery or procedure or chance of getting an infection with perfect accuracy, but a joint decision was made to proceed at this time with the scheduled surgery/procedure as indicated on the consent form. Patient was notified that we will need to comply with any screening or testing [facility] wishes to perform or that surgery may be delayed for any positive results. Emery Correa MD Pager: [facility] [address] [place] [address], [address] [place] [address] Office: Orders Orders: Colonoscopy Today Z12.11 EGD Today K21.9 Medications New: omeprazole 20 mg PO DAILY 60 tabs 2RF Coding Level of Care Code Off vis,new,level 3 Diagnoses Screen for colon cancer Z12.11 Gastroesophageal reflux disease, esophagitis presence not specified K21.9 ??Esophagitis presence: esophagitis presence not specified 12/15/19 1050 <Electronically signed by Emery lloyd MD> Date _ Emery Correa MD I have re-examined the patient. There are no clinical changes since date of exam.
--- NOTE | 2019-12-23 | GASB_PTH ---
PATIENT: GEETA CURTIS LOC: EN U#:[id number] AGE/SX: 64/M ROOM: RE12/23/[address]: Dr. Emery Correa MD : 1955 BED: DIS: 12/23/2019 SPEC #: [id number] RECD: 12/23/19 13:40 STATUS: LULI ADAM #: [id number] GLORIA: 12/23/19 00:[address]: Emery Correa DEPT: SURGICAL PATHOLOGY RECD BY: Miguel Hilliard ENTERED: 12/23/19 13:40 SP TYPE: Gastric Bx OTHR DR: Dr. Cirilo Alves MD Tissues: Gastric mucous membrane Procedures: Surgery Specimen Level IV HEADER OPERATION: [place] PRE-OP DIAGNOSIS: GERD and screening for colon CA TISSUE SUBMITTED: Antrum biopsy for H. pylori and path MICROSCOPIC DIAGNOSIS Antrum biopsy: Mild gastritis. See microscopic description and comment. SJ:marla 12/24/19 COMMENT The results of immunohistochemistry for Helicobacter pylori will be reported separately ([id number]). MICROSCOPIC DESCRIPTION Slides are reviewed. The specimen shows fragments of gastric mucosa with chronic inflammatory cell infiltrates in the lamina propria consisting of lymphocytes and plasma cells, consistent with mild chronic gastritis. GROSS DESCRIPTION Received in fixative is one container labeled with the patient's name and designated antrum biopsy. The specimen consists of two irregular fragments of light carrasquillo soft tissue that in aggregate measure 0.6 x 0.2 x 0.1 cm. The specimen is totally submitted in one cassette. / CUONG:marla 12/23/19 TC:3 CPT: 87559
[2019-12-23 07:45] VITALS: BP 147/91; PULSE 71; RESP 18; TEMP 36.6; O2SAT 93; BMI 30.8
[2019-12-23] MEDS: Lactated Ringers 1,000 ML 100 ML IV (08:00)
--- NOTE | 2019-12-23 09:00 | IMM_PTH ---
PATIENT: GEETA CURTIS LOC: EN U#:[id number] AGE/SX: 64/M ROOM: RE12/23/[address]: Dr. Emery Correa MD : 1955 BED: DIS: 12/23/2019 SPEC #: [id number] RECD: 12/24/19 08:04 STATUS: LULI ADAM #: [id number] GLORIA: 12/23/19 09:[address]: Emery Correa DEPT: IMMUNOHISTOCHEMISTRY RECD BY: Lu Hood ENTERED: 12/24/19 08:05 SP TYPE: IMMUNO OTHR DR: Dr. Cirilo Alves MD Tissues: Stomach, NOS Procedures: H Pylori (initial) PHYSICIAN & INSTITUTION [place] [address] SPECIMEN INFORMATION: Tissue Source: Antrum biopsy Clinical Info: GERD, screening Specimen Number: [id number] CPT code: 49638 METHODOLOGY: Deparaffinized sections of prefer/formalin-fixed tissue or PAP/DQ stained slides are incubated with monoclonal/polyclonal antibodies/oligonucleotide probes. Localization is made via biotin free immunoperoxidase method. Appropriate controls are performed and reacted as expected. Results on target cell population are indicated in the following table: RESULTS: ANTIBODY / CLONE RESULT H Pylori (polyclonal) negative These tests were developed and their performance characteristics determined by [facility]. They may not have been cleared or approved by the U.S. Food and Drug Administration. The FDA has determined that such clearance or approval is not necessary. INTERPRETATION: Antrum, biopsy: Negative for Helicobacter pylori organisms. SJ:marla 12/24/19
--- NOTE | 2019-12-23 09:12 | OP.EGD_ITS ---
Patient Name: Schuyler Mitchell Procedure Date: 12/23/2019 8:43 AM Date of : 1955 Age: 64 Procedure: Upper GI endoscopy Indications: Epigastric abdominal pain, Heartburn Providers: Emery Correa MD Referring MD: Cirilo Alves Md Medicines: Monitored Anesthesia Care Patient Profile: This is a 64 year old male. Refer to note in patient chart for documentation of history and physical. Complications: No immediate complications. Estimated blood loss: Minimal. Procedure: Pre-Anesthesia Assessment: - Prior to the procedure, a History and Physical was performed, and patient medications and allergies were reviewed. The patient's tolerance of previous anesthesia was also reviewed. The risks and benefits of the procedure and the sedation options and risks were discussed with the patient. All questions were answered, and informed consent was obtained. Prior Anticoagulants: The patient has taken no previous anticoagulant or antiplatelet agents. After reviewing the risks and benefits, the patient was deemed in satisfactory condition to undergo the procedure. After obtaining informed consent, the endoscope was passed under direct vision. Throughout the procedure, the patient's blood pressure, pulse, and oxygen saturations were monitored continuously. The Endoscope was introduced through the mouth, and advanced to the second part of duodenum. The upper GI endoscopy was accomplished without difficulty. The patient tolerated the procedure well. Scope In: 8:53:17 AM Scope Out: 8:55:48 AM Total Procedure Duration Time 0 hours 2 minutes 31 seconds Findings: Localized moderately erythematous mucosa without bleeding was found in the prepyloric region of the stomach. Biopsies were taken with a cold forceps for Helicobacter pylori testing. The esophagus was normal. The examined duodenum was normal. Impression: - Erythematous mucosa in the prepyloric region of the stomach. Biopsied. - Normal esophagus. - Normal examined duodenum. Recommendation: - Await pathology results. - Discharge patient to home. - Resume previous diet. - Continue present medications. Procedure Code(s): --- Professional --- 32863, Esophagogastroduodenoscopy, flexible, transoral; with biopsy, single or multiple Diagnosis Code(s): --- Professional --- K31.89, Other diseases of stomach and duodenum R10.13, Epigastric pain R12, Heartburn CPT copyright 2017 [employer]. All rights reserved. The codes documented in this report are preliminary and upon silk weaver review may be revised to meet current compliance requirements. Emery Correa MD 12/23/2019 9:12:19 AM This report has been signed electronically. Number of Addenda: 0 Note Initiated On: 12/23/2019 8:43 AM
[2019-12-23 09:13] VITALS: BP 129/89; BP 147/91; PULSE 78; RESP 16; TEMP 36.5; O2SAT 99
--- NOTE | 2019-12-23 09:13 | OP.CCLET_ITS ---
12/23/2019 Cirilo Alves Md Re : Upper GI endoscopy procedure for Schuyler Mitchell Dear Joselyn This procedure was performed on Monday, December 23, 2019. My impressions and recommendations are as follows: Impressions : - Erythematous mucosa in the prepyloric region of the stomach. Biopsied. - Normal esophagus. - Normal examined duodenum. Recommendations : - Await pathology results. - Discharge patient to home. - Resume previous diet. - Continue present medications. My findings are described in the full procedure note, which is enclosed. If I can be of further assistance, please feel free to contact me at Doctor phone number(s): , Work: . Sincerely, Emery Correa MD 12/23/2019 9:12:19 AM This report has been signed electronically.
--- NOTE | 2019-12-23 09:15 | OP.COLON_ITS ---
Patient Name: Schuyler Mitchell Procedure Date: 12/23/2019 8:56 AM Date of : 1955 Age: 64 Procedure: Colonoscopy Indications: Screening for colorectal malignant neoplasm Providers: Emery Correa MD Referring MD: Cirilo Alves Md Medicines: Monitored Anesthesia Care Patient Profile: This is a 64 year old male. Refer to note in patient chart for documentation of history and physical. Last Colonoscopy: more than 10 years ago. Complications: Vasovagal reaction. Pt had bradycardia during scope advacement and procedure aborted at hepatic flexure. Procedure: Pre-Anesthesia Assessment: - Prior to the procedure, a History and Physical was performed, and patient medications and allergies were reviewed. The patient's tolerance of previous anesthesia was also reviewed. The risks and benefits of the procedure and the sedation options and risks were discussed with the patient. All questions were answered, and informed consent was obtained. Prior Anticoagulants: The patient has taken no previous anticoagulant or antiplatelet agents. After reviewing the risks and benefits, the patient was deemed in satisfactory condition to undergo the procedure. After I obtained informed consent, the scope was passed under direct vision. Throughout the procedure, the patient's blood pressure, pulse, and oxygen saturations were monitored continuously. The Colonoscope was introduced through the anus and advanced to the hepatic flexure. The colonoscopy was performed without difficulty. The procedure was aborted at hepatic flexure due to bradycardic events. Scope In: 8:58:49 AM Scope Out: 9:08:18 AM Total Procedure Duration Time 0 hours 9 minutes 29 seconds Findings: The entire examined colon appeared normal on direct and retroflexion views. Impression: - The entire examined colon is normal on direct and retroflexion views. - No specimens collected. Recommendation: - Discharge patient to home. - Resume previous diet. - Continue present medications. - Repeat colonoscopy in 6 months because the examination was incomplete. - Refer to a nuclear equipment operator at appointment to be scheduled. Procedure Code(s): --- Professional --- 83779, 53, Colonoscopy, flexible; diagnostic, including collection of specimen(s) by brushing or washing, when performed (separate procedure) Diagnosis Code(s): --- Professional --- Z12.11, Encounter for screening for malignant neoplasm of colon CPT copyright 2017 [employer]. All rights reserved. The codes documented in this report are preliminary and upon media technician review may be revised to meet current compliance requirements. Emery Correa MD 12/23/2019 9:14:50 AM This report has been signed electronically. Number of Addenda: 0 Note Initiated On: 12/23/2019 8:56 AM
--- NOTE | 2019-12-23 09:15 | OP.CCLET_ITS ---
12/23/2019 Cirilo Alves Md Re : Colonoscopy procedure for Schuyler Mitchell Dear Joselyn This procedure was performed on Monday, December 23, 2019. My impressions and recommendations are as follows: Impressions : - The entire examined colon is normal on direct and retroflexion views. - No specimens collected. Recommendations : - Discharge patient to home. - Resume previous diet. - Continue present medications. - Repeat colonoscopy in 6 months because the examination was incomplete. - Refer to a prop setter at appointment to be scheduled. My findings are described in the full procedure note, which is enclosed. If I can be of further assistance, please feel free to contact me at Doctor phone number(s): , Work: . Sincerely, Emery Correa MD 12/23/2019 9:14:50 AM This report has been signed electronically.
[2019-12-23 09:20] VITALS: BP 126/86; BP 147/91; PULSE 68; RESP 16; O2SAT 94
[2019-12-23 09:25] VITALS: BP 131/94; BP 147/91; PULSE 63; RESP 16; O2SAT 94
[2019-12-23 09:28] VITALS: BP 135/89; BP 147/91; PULSE 64; RESP 16; TEMP 37.1; O2SAT 95
[2019-12-23 09:52] VITALS: BP 147/91
== END 2019-12-23 09:52 | disposition home or self-care (01) ==
LOC: EN 07:22 → AC 07:22
PROVIDERS: Anesthesiology; PCP Family Medicine; Referring Provider Family Medicine; Visit Provider Surgery
PROC: 0DJD8ZZ Inspection of Lower Intestinal Tract, Via Natural or Artificial Opening Endoscopic (ICD-10-PCS; CPT 45378; principal; 2019-12-23 08:55)
DX: Z12.11 Encounter for screening for malignant neoplasm of colon (principal); K21.0 Gastro-esophageal reflux disease with esophagitis; R14.0 Abdominal distension (gaseous); K31.89 Other diseases of stomach and duodenum; Z53.8 Procedure and treatment not carried out for other reasons; R55 Syncope and collapse; R00.1 Bradycardia, unspecified; Z11.59 Encounter for screening for other viral diseases; I10 Essential (primary) hypertension; Z79.899 Other long term (current) drug therapy; E78.00 Pure hypercholesterolemia, unspecified; Z87.891 Personal history of nicotine dependence; Z90.49 Acquired absence of other specified parts of digestive tract; K29.70 Gastritis, unspecified, without bleeding
CPT/HCPCS: 43239; 45378; 87635; 88305; 88342; G2023; J7120; J2405; U0003

== ENCOUNTER → 2020-01-20 12:51 | Outpatient (CLI) | payer BC, SELFPAY ==
[2019-12-31 09:34] VITALS: BMI 31.6
--- NOTE | 2020-01-20 12:52 | ECHOD_ITS ---
Reason For Study: ARRHYTHMIA Procedure This was a 2D Doppler, Color Flow transthoracic echocardiogram. Exam performed in department. Left Ventricle Normal LV size. Left ventricular systolic function is normal. The estimated ejection fraction is 60 %. Stage 1 diastolic dysfunction. No regional wall motion abnormalities noted. Right Ventricle Normal RV size. Normal systolic function. Atria Normal left atrium. Normal right atrium. Mitral Valve Normal mitral valve. Tricuspid Valve Normal tricuspid valve. Aortic Valve Normal aortic valve. Trisinus/trileaflet aortic valve. Pulmonic Valve Normal pulmonic valve. Great Vessels Normal aortic root. The pulmonary artery is normal size. Normal inferior vena cava. Pericardium/Pleural No pericardial effusion. MMode/2D Measurements & Calculations LVIDd: 5.4 cm IVSd: 1.2 cm Ao root diam: 3.5 cm LVIDs: 3.5 cm LVPWd: 1.1 cm RVDd: 3.7 cm FS: 36.2 % LAV(MOD-bp): 49.4 ml LA A4 area: 17.9 cm2 LA dimension(2D): 3.6 cm LAV(MOD-bp) Indexed: 22.0 ml/m2 LAV(MOD-sp2): 44.8 ml LAV(MOD-sp4): 44.7 ml Time Measurements MV dec time: 0.23 sec Doppler Measurements & Calculations MV E max [place]: 55.5 cm/sec Lat Peak E' [place]: 8.2 cm/sec Med Peak E' [place]: 5.7 cm/sec MV A max [place]in: 62.6 cm/sec E/E' lat: 6.8 E/E' med: 9.7 MV E/A: 0.89 Ao V2 max: 124.7 cm/sec LV V1 max: 101.3 cm/sec PA V2 max: 109.0 cm/sec Ao max P.2 mmHg LV V1 max P.1 mmHg PI end-d austin: 103.7 cm/sec Interpretation Summary Normal LV size. Left ventricular systolic function is normal. The estimated ejection fraction is 60 %. Stage 1 diastolic dysfunction. Structurally normal valves. Ordering Physician: Sheldon Pearson Referring Physician: Cirilo Alves Performed By: Sarah Guthrie, RDCS, RVT
== END ==
PROVIDERS: PCP Family Medicine; Referring Provider Internal Medicine Cardiovascular Disease; Visit Provider Internal Medicine Cardiovascular Disease
DX: R00.1 Bradycardia, unspecified (principal)
CPT/HCPCS: 93225; 93226; 93306

== ENCOUNTER → 2020-04-22 13:39 | Outpatient (CLI) | payer BC, SELFPAY ==
[2019-12-31 09:34] VITALS: BMI 31.6
[2020-04-22 18:04] LABS: PSA,Total- Diagnostic 4.89 ng/mL (0.0-4.0)
== END ==
PROVIDERS: PCP Family Medicine; Referring Provider Family Medicine; Visit Provider Family Medicine
DX: R97.20 Elevated prostate specific antigen [PSA] (principal)
CPT/HCPCS: 36415; 84153

== ENCOUNTER → 2020-06-17 16:18 | Outpatient (CLI) | payer BC, SELFPAY ==
[2019-12-31 09:34] VITALS: BMI 31.6
--- NOTE | 2020-06-17 16:20 | RAD_ITS ---
We are attempting to reach an attending provider to discuss findings. An addendum with communication details will be sent when the communication is complete. STUDY: X-RAY - LEFT KNEE REASON FOR EXAM: Male, 65 years old. pt fell yesterday, mostly right knee pain TECHNIQUE: 4 weightbearing view(s) of the knee. COMPARISON: 03/06/2013. FINDINGS: Progression off spurring along the femoral notch, tibial spine and lateral femoral tibial compartment. There is heterogeneous trabecular pattern and irregularity of the left tibial plateau laterally, new since previous examination. There is increased arthrosis of the proximal tibiofibular articulation. There is moderate degenerative arthrosis of the medial femorotibial compartment with moderate joint space narrowing. There is moderate degenerative arthrosis of the lateral femorotibial compartment with moderate joint space narrowing. There is severe degenerative arthrosis of the patellofemoral articulation increased since previous exam. There is stable lateral subluxation and stable bipartite patella. Stable patella glen. There is a soft tissue prominence in the suprapatellar region suggesting a small volume joint effusion. The soft tissue structures are unremarkable. RAD/Knee 4 or More Views IMPRESSION: There is deformity of the lateral tibial plateau with mild depression and heterogeneous trabecular pattern and irregularity of the articular surface, however a clear fracture line is not visualized. There is stable small effusion. Depending on the suspicion level for trauma, MRI examination would provide additional detail. Severe degenerative changes of the patellofemoral articulation, progressed since previous examination, stable patella glen, stable bipartite patella and lateral subluxation. Worsening of arthropathy involving the medial and lateral femoral tibial compartment. Electronically Signed: eBe Slade MD at 6:59 EST , Service support ,
--- NOTE | 2020-06-17 16:20 | RAD_ITS ---
STUDY: X-RAY - RIGHT KNEE REASON FOR EXAM: Male, 65 years old. pt fell yesterday, mostly right knee pain TECHNIQUE: 4 view(s) of the knee. COMPARISON: 10/15/2017. FINDINGS: Normal visualized distal femur. Severe spurring of the mid and posterior tibial articular surface, minimal spurring anteriorly. Normal proximal tibiofibular articulation. Spurring involving the femoral notch and tibial spine without change. There is mild degenerative arthrosis of the medial femorotibial compartment. There is mild degenerative arthrosis of the lateral femorotibial compartment. There is chondrocalcinosis of both menisci. There is moderate degenerative arthrosis of the patellofemoral articulation. There is a soft tissue prominence in the suprapatellar region suggesting a small volume joint effusion. The soft tissue structures are unremarkable. RAD/Knee 4 or More Views IMPRESSION: Tricompartmental degenerative changes with large spurring of the tibial articular surface. Chondrocalcinosis of menisci. Small effusion. Accessory ossification superior lateral to the patella is stable. There is no acute displaced fracture or dislocation. Electronically Signed: Bee Slade MD at 1:18 EST , Service support ,
== END ==
PROVIDERS: PCP Family Medicine; Referring Provider Family Medicine; Visit Provider Family Medicine
DX: M25.561 Pain in right knee (principal); M25.562 Pain in left knee
CPT/HCPCS: 73564

== ENCOUNTER → 2020-08-06 13:51 | Outpatient (CLI) | payer OTHER, SELFPAY ==
[2020-08-06 15:15] LABS: Absolute Lymphocyte Count 1.52 X10^3/uL (0.83-4.51); Absolute Neutrophil Count 3.6 X10^3/uL (2.0-7.7); Basophil# 0.05 X10^3/uL; Basophil% 0.8 % (0-1); Eosinophil# 0.14 X10^3/uL; Eosinophils% 2.3 % (0-5); Hematocrit 45.4 % (40-54); Lymphocyte # 1.52 X10^3/ul (4.0); Lymphocyte % 24.6 % (19-41); Mean Corpuscular Hgb 30.9 pg (27.0-32.0); Mean Corpuscular Volume 93.4 fL (80-94); Mean Platelet Vol. 10.8 fl (6.2-12.0); Monocyte# 0.84 X10^3/uL; Monocyte% 13.6 % (0-10); NRBC Flagged by Analyzer 0 % (0-5); Neutrophil # 3.59 X10^3/uL (2.7-7.7); Neutrophil % 58.2 % (47-70); Platelet Count 212 K/mm3 (150-450); RBC Distribution Width CV 12.4 % (11.6-14.6); RBC Distribution Width SD 42.5 fl (35.1-43.9); Red Blood Count 4.86 M/mm3 (4.6-6.2); White Blood Count 6.2 K/mm3 (4.4-11.0)
[2020-08-06 15:53] LABS: ALB/GLOB Ratio 1.4 RATIO (0.9-2.4); AST(SGOT) 27 U/L (15-37); Alanine Aminotransfer ALT/SGPT 42 U/L (16-61); Albumin, Serum 4.2 g/dL (3.2-5.0); Alkaline Phosphatase 84 U/L (45-117); Anion Gap 3 (5-15); BUN 15 mg/dL (7-18); BUN/Creat Ratio 16.2 RATIO (10-20); Calcium,Total 9.3 mg/dL (8.5-10.1); Chloride 107 mmol/L (98-107); Creatinine, Serum 0.93 mg/dL (0.70-1.30); EST Glomerular Filtration Rate 87 mL/min (>60); Est Glom Filt Rate - Afr Amer 105 mL/min (>60); Glucose 102 mg/dL (74-106); Protein, Total 7.2 g/dL (6.4-8.2); Sodium Level 140 mmol/L (136-145); Thyroid Stim Hormone (TSH) 0.81 uIU/mL (0.358-3.74)
== END ==
PROVIDERS: PCP Family Medicine; Referring Provider Family Medicine; Visit Provider Family Medicine
DX: R42 Dizziness and giddiness (principal)
CPT/HCPCS: 36415; 80053; 84443; 85025

== ENCOUNTER → 2020-08-20 10:12 | Outpatient (CLI) | payer OTHER, SELFPAY ==
--- NOTE | 2020-08-20 10:13 | MRI_ITS ---
STUDY: MRA OF THE HEAD WITHOUT CONTRAST REASON FOR EXAM: Male, 65 years old. dizziness, left head pressure, pain. dizziness, left head pressure, pain TECHNIQUE: 3-D [id number] (TOF) imaging was performed with MIPs. The study was performed unenhanced. COMPARISON: None. FINDINGS: Patent right cavernous carotid artery. Patent left cavernous carotid artery. Patent right A1 segments of the anterior cerebral artery. Patent left A1 segments of the anterior cerebral artery. Unremarkable anterior communicating artery (ACOM) region. Normal bilateral A2 segments of the anterior cerebral arteries. Patent right M1 and M2 segments of the middle cerebral arteries, with a unremarkable M1 bifurcation. Patent left M1 and M2 segments of the middle cerebral arteries, with a unremarkable M1 bifurcation. There is non-visualization of the right posterior communicating artery (PCOM). There is non-visualization of the left posterior communicating artery (PCOM). Patent basilar artery with a normal basilar bifurcation. Patent bilateral posterior cerebral arteries. MRI/MRA Head ONLY without Contrast IMPRESSION: No large vessel occlusion. Electronically Signed: Emory Wright MD at 11:51 EST Tel , Service support ,
== END ==
PROVIDERS: PCP Family Medicine; Referring Provider Family Medicine; Visit Provider Family Medicine
DX: R42 Dizziness and giddiness (principal)
CPT/HCPCS: 70544

== ENCOUNTER → 2020-11-22 15:59 | Outpatient (CLI) | payer OTHER, SELFPAY ==
[2020-11-22 17:54] LABS: PSA,Total- Diagnostic 3.81 ng/mL (0.0-4.0)
== END ==
PROVIDERS: PCP Family Medicine; Visit Provider Urology
DX: N40.1 Benign prostatic hyperplasia with lower urinary tract symptoms (principal)
CPT/HCPCS: 36415; 84153

== ENCOUNTER → 2021-01-06 14:18 | Outpatient (CLI) | payer OTHER, SELFPAY ==
[2021-01-06 17:43] LABS: Absolute Neutrophil Count 4.2 X10^3/uL (2.0-7.7); Basophil# 0.06 X10^3/uL; Basophil% 0.9 % (0-1); Eosinophil# 0.12 X10^3/uL; Eosinophils% 1.7 % (0-5); Hematocrit 45.8 % (40-54); Hemoglobin 14.9 g/dL (13.0-16.5); Lymphocyte % 25.7 % (19-41); Mean Corp Hgb Conc 32.5 g/dL (32-36); Mean Corpuscular Hgb 30.7 pg (27.0-32.0); Mean Corpuscular Volume 94.4 fL (80-94); Mean Platelet Vol. 11.2 fl (6.2-12.0); Monocyte# 0.83 X10^3/uL; Monocyte% 11.8 % (0-10); NRBC Flagged by Analyzer 0 % (0-5); Neutrophil # 4.18 X10^3/uL (2.7-7.7); Neutrophil % 59.6 % (47-70); Platelet Count 224 K/mm3 (150-450); RBC Distribution Width CV 12.7 % (11.6-14.6); RBC Distribution Width SD 44.2 fl (35.1-43.9); Red Blood Count 4.85 M/mm3 (4.6-6.2)
[2021-01-06 17:57] LABS: ALB/GLOB Ratio 1.3 RATIO (0.9-2.4); AST(SGOT) 31 U/L (15-37); Alanine Aminotransfer ALT/SGPT 44 U/L (16-61); Albumin, Serum 4.1 g/dL (3.2-5.0); Alkaline Phosphatase 86 U/L (45-117); Anion Gap 8 (5-15); BUN 15 mg/dL (7-18); BUN/Creat Ratio 14.4 RATIO (10-20); Calcium,Total 9.2 mg/dL (8.5-10.1); Chloride 102 mmol/L (98-107); Cholesterol 136 mg/dL (200); Creatinine, Serum 1.04 mg/dL (0.70-1.30); EST Glomerular Filtration Rate 76 mL/min (>60); Est Glom Filt Rate - Afr Amer 92 mL/min (>60); Globulin 3.2 g/dL (2.2-4.2); Glucose 99 mg/dL (74-106); High Density Lipoprotein 52 mg/dL; Potassium 3.9 mmol/L (3.5-5.1); Protein, Total 7.3 g/dL (6.4-8.2); Sodium Level 137 mmol/L (136-145); Triglycerides 104 mg/dL; Very Low Density Lipoprotein 21 mg/dL (5-40)
== END ==
PROVIDERS: PCP Family Medicine; Visit Provider Family Medicine
DX: I10 Essential (primary) hypertension (principal)
CPT/HCPCS: 36415; 80053; 80061; 85025

== ENCOUNTER → 2021-01-27 11:19 | Outpatient (CLI) | payer OTHER, SELFPAY ==
[2021-01-26 09:37] VITALS: BMI 31.6
[2021-01-27 12:58] LABS: Amphetamine Urine VISTA NEGATIVE (<1000 ng/mL); Barbiturate Urine VISTA NEGATIVE (< 200 ng/mL); Benzodiazepine Urine VISTA NEGATIVE (< 200 ng/mL); Cocaine Urine VISTA NEGATIVE (< 300 ng/mL); Ecstacy Urine VISTA NEGATIVE (< 500 ng/mL); Methadone Urine VISTA NEGATIVE (< 300 ng/mL); PCP Urine VISTA NEGATIVE (< 25 ng/mL); THC Urine VISTA NEGATIVE (< 50 ng/mL); Vista UDS pH Range 5
== END ==
PROVIDERS: PCP Family Medicine; Referring Provider Anesthesiology Pain Medicine; Visit Provider Anesthesiology Pain Medicine
DX: F11.20 Opioid dependence, uncomplicated (principal)
CPT/HCPCS: 80307

== ENCOUNTER → 2021-06-13 14:09 | Outpatient (CLI) | payer OTHER, SELFPAY ==
[2021-06-13 14:38] LABS: Hematocrit 45.1 % (40-54); Hemoglobin 15.2 g/dL (13.0-16.5); Mean Corp Hgb Conc 33.7 g/dL (32-36); Mean Corpuscular Hgb 31.7 pg (27.0-32.0); Mean Platelet Vol. 10.2 fl (6.2-12.0); Platelet Count 203 K/mm3 (150-450); RBC Distribution Width CV 12.6 % (11.6-14.6); RBC Distribution Width SD 43.6 fl (35.1-43.9); White Blood Count 6.2 K/mm3 (4.4-11.0)
[2021-06-13 14:55] LABS: Anion Gap 4 (5-15); BUN 12 mg/dL (7-18); BUN/Creat Ratio 12.8 RATIO (10-20); Calcium,Total 9.5 mg/dL (8.5-10.1); Chloride 106 mmol/L (98-107); Creatinine, Serum 0.94 mg/dL (0.70-1.30); EST Glomerular Filtration Rate 86 mL/min (>60); Est Glom Filt Rate - Afr Amer 104 mL/min (>60); Glucose 147 mg/dL (74-106); Potassium 3.9 mmol/L (3.5-5.1); Sodium Level 140 mmol/L (136-145)
== END ==
PROVIDERS: PCP Family Medicine; Referring Provider Urology; Visit Provider Urology
DX: Z01.812 Encounter for preprocedural laboratory examination (principal)
CPT/HCPCS: 36415; 80048; 85027

== ENCOUNTER → 2021-06-28 | Outpatient (CLI) | payer OTHER, SELFPAY | END | disposition home or self-care (01) | LOC: LABSPEC 14:56 | PROVIDERS: PCP Family Medicine; Visit Provider Nurse Practitioner Family | DX: J06.9 Acute upper respiratory infection, unspecified (principal) | CPT/HCPCS: 87633; 87635; U0005; U0003 ==

== ENCOUNTER 2021-07-06 08:42 | Day surgery (SDC) | payer OTHER, SELFPAY ==
--- NOTE | 2021-07-04 08:27 | EKG12_ITS ---
Test Reason : PREOP Blood Pressure : / mmHG Vent. Rate : 072 BPM Atrial Rate : 072 BPM P-R Int : 164 ms QRS Dur : 102 ms QT Int : 386 ms P-R-T Axes : 040 -16 031 degrees QTc Int : 422 ms Normal sinus rhythm Normal ECG Confirmed by LOWELL MARIE, KHANH ([id number]), commercial production editor BERTO CHILD ([id number]) on 07/04/2021 2:17:07 PM Referred By: Luis Alexander Confirmed By:KHANH ETIENNE MD
[2021-07-06] VITALS (7 sets, daily range): BP systolic 118–149; BP diastolic 76–94; PULSE 72–78; RESP 16; TEMP 35.8–36.8; O2SAT 91–95; BMI 32.5
--- NOTE | 2021-07-06 | PROS_PTH ---
PATIENT: GEETA CURTIS LOC: [facility] [place][id number] AGE/SX: 66/M ROOM: RE07/06/[address]: Dr. Luis Alexander MD : 1955 BED: DIS: 07/06/2021 SPEC #: [id number] RECD: 07/06/21 15:51 STATUS: LULI MEDINA #: [id number] GLORIA: 07/06/21 00:[address]: Luis Alexander DEPT: SURGICAL PATHOLOGY RECD BY: Miguel Hilliard ENTERED: 07/07/21 10:38 SP TYPE: TURP OTHR DR: Dr. Cirilo Alves MD Tissues: Prostate, NOS Procedures: Surgery Specimen Level IV HEADER OPERATION: Cysto, TUR prostate, Olympus PRE-OP DIAGNOSIS: BPH with obstruction TISSUE SUBMITTED: Prostate tissue MICROSCOPIC DIAGNOSIS Prostate tissue, TUR: Benign prostatic hyperplasia, glandular and stromal type. Chronic inflammation. SJ:marla 07/08/2021 MICROSCOPIC DESCRIPTION Slides are reviewed. GROSS DESCRIPTION Received is one container labeled with the patient's name and designated prostate tissue. The specimen consists of multiple irregular fragments of pink-carrasquillo, rubbery, soft tissue that in aggregate weigh 13.4 gm and measure in aggregate 6 x 4 x 1.5 cm. Easter Bunny tissue is submitted in ten cassettes. / CUONG:marla 07/07/21 TC:5 CPT: 63967
[2021-07-06] MEDS: Lactated Ringers 1,000 ML 15 ML IV ×2 (09:00→10:47)
--- NOTE | 2021-07-06 13:41 | HP.PCM_ITS ---
HPI - General HPI Narrative GEETA CURTIS, is a 66 M who presents for a TURP [facility] Medical History (Updated 06/29/21 @ 09:37 by Shannan Palomino) Acid reflux Arthritis Back pain Bloating Bradycardia Cardiology follow-up encounter [place] Effusion of right knee joint Essential (primary) hypertension Former smoker Gastric reflux GERD (gastroesophageal reflux disease) High cholesterol History of echocardiogram History of steroid therapy History of stress test Hyperlipidemia Hypertension Injury of head and neck Knee pain Migraine headache Neck pain Osteoarthritis Prostate disease Shortness of breath on exertion Shoulder pain 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) Wears glasses Wears hearing aid Home Medications atorvastatin 40 mg tablet 40 mg PO DAILY 12/15/19 [History Last Taken Unknown] lisinopril 20 mg tablet 20 mg PO DAILY 12/15/19 [History Last Taken Unknown] oxycodone-acetaminophen [Percocet] 1 ea PO PRN PRN 12/17/19 [History Last Taken Unknown] simethicone 125 mg PO PRN PRN 12/17/19 [History Last Taken Unknown] omeprazole 20 mg PO DAILY 12/23/19 [History Last Taken Unknown] biotin 2,500 mcg capsule 2,500 mcg PO DAILY 01/26/21 [History Last Taken Unknown] cholecalciferol (vitamin D3) 25 mcg (1,000 unit) capsule 25 mcg PO DAILY 01/26/21 [History Last Taken Unknown] multivitamin 1 tab PO DAILY 01/26/21 [History Last Taken Unknown] turmeric 400 mg capsule 400 mg PO DAILY 01/26/21 [History Last Taken Unknown] sulfamethoxazole-trimethoprim [Bactrim DS] 1 tab PO BID #10 tab 07/06/21 [Rx Last Taken Unknown] Allergy/AdvReac Type Severity Reaction Status Date / Time streptomycin [Streptomycin] Allergy Severe Lost Verified 06/29/21 09:24 hearing Tetanus Vaccines and Toxoid Allergy Severe Anaphylaxis Verified 06/29/21 09:24 [Tetanus Vaccines & Toxoid] Family History Father Hypertension High cholesterol Surgical History (Updated 06/29/21 @ 09:37 by Shannan Palomino) History of carpal tunnel surgery History of laparoscopic cholecystectomy History of repair of rotator cuff Hx of cervical spine surgery Hx of colonoscopy Hx of foot surgery Hx of neck surgery Social History (Reviewed 01/26/21 @ 09:35 by Gypsy Bucio Smoking Status: Former smoker alcohol intake: never substance use type: does not use Vital Signs Vital Signs Vital Signs: 07/06/21 09:16 Temperature 98.2 F Temperature Source Temporal Pulse Rate 75 Respiratory Rate 16 Respiratory Pattern Normal Blood Pressure 141/94 H Blood Pressure Mean 109 Blood Pressure Source Monitor Blood Pressure Position Semi-Fowlers Blood Pressure Location Right Arm Pulse Ox 94 Oxygen Delivery Method Room Air Weight Weight: 109 kg Body Mass Index (BMI) 32.5
--- NOTE | 2021-07-06 13:41 | PCM.DC ---
Discharge Instructions Diet Discharge Diet: No restrictions Activity Discharge Activity: Return to Normal Activity and May Not Drive (while taking narcotic pain medications.) Dressing / Incision Call your doctor if you observe: Fever of 101 or Higher Follow Up Care Please Follow Up With: Luis Alexander MD When: Call [phone] for an appointment Test Results: Test results from this visit will be discussed in further detail at your follow-up appointment, if applicable. Discharge Plan Admission Primary Reason for Your Visit: DULCE Attending Provider: Luis Alexander Primary Care Provider: Cirilo Alves Discharge Orders/Prescriptions Prescriptions: New sulfamethoxazole-trimethoprim [Bactrim DS] 800-160 mg tablet 1 tab PO BID Qty: 10 RF: 0 Continued lisinopril 20 mg tablet 20 mg PO DAILY RF: 0 atorvastatin 40 mg tablet 40 mg PO DAILY RF: 0 turmeric 400 mg capsule 400 mg PO DAILY RF: 0 multivitamin Tablet 1 tab PO DAILY RF: 0 cholecalciferol (vitamin D3) 25 mcg (1,000 unit) capsule 25 mcg PO DAILY RF: 0 biotin 2,500 mcg capsule 2,500 mcg PO DAILY RF: 0 oxycodone-acetaminophen [Percocet] 1 EACH tablet 1 ea PO PRN PRN (Reason: Pain Or Fever) RF: 0 simethicone 125 MG tablet,chewable 125 mg PO PRN PRN (Reason: Gas) RF: 0 omeprazole 20 MG capsule,delayed release(DR/EC) 20 mg PO DAILY RF: 0 Referrals / Follow Up: Luis Alexander MD [STAFF PHYSICIAN] - Cirilo Alves MD [Primary Care Provider] - Disposition Disposition (needs filled in before D/C Order can be placed): Home, Self Care
[2021-07-06] MEDS: Lubricating Jelly 60 GM Tube 30 GM (13:45)
--- NOTE | 2021-07-06 14:45 | OP.PCM_ITS ---
Report of Operation Date of Procedure: 07/06/21 Pre-Operative Diagnosis: BPH with obstruction Post-Operative Diagnosis: Same Surgery/Procedure Performed:: Transurethral section prostate Description of Surgical Findings:: In the preoperative setting I discussed with the patient how the surgery would be done with expect afterwards. We discussed how a prostate resection is done and we discussed the risk of the surgery including, bleeding, infection, retrograde ejaculation, changes with ejaculation or intercourse,. We discussed the possibility that the resection of the prostate may not alleviate his urinary symptoms. We discussed the small risk of developing scar tissue along the urethral channel and strictures. We also discussed the chance of the prostate could grow back and he may need further surgery or treatment in the future for prostate problems. Patient was taken back to the operating room, timeout procedure was performed, he was identified and marked and placed on the operating room table. He underwent general anesthesia. He was placed in dorsolithotomy position. Penis and testicles were prepped and draped in usual sterile fashion. Went into the bladder using the visual obturator with a resectoscope. Once inside the bladder identified the right and left ureteral orifice. I then identified the prostate and the anatomy of the prostate. I marked out the area of the sphincter and the verumontanum was identified. I then proceeded with the prostate resection first resected the median lobe. And then resected the right lobe of the prostate. Then to resect the left lobe of the prostate. I then resected the apical tissue of the prostate. This was a complete resection of all obstructive tissue to improve voiding and relieve obstruction. I then made sure that there was no injury to the sphincter or the verumontanum was still intact. At the end of the resection all the chips were Ellik out of the bladder. I then identified the left and right ureteral orifice and these were confirmed to be in good position and effluxing and not injured. The resectoscope was removed, a 22 Georgian catheter was placed into the bladder on continuous irrigation. And the urine was fairly light pink color and draining normally. He was taken back to the PACU in good condition. Surgeon: Catherine Type of Anesthesia: General Drains: 20 fr tuttle Admit VTE Documentation VTE Present on Admission: No VTE Mechan Device Prophylaxis: SCD's VTE Pharm Prophylaxis ordered?: No
== END 2021-07-06 23:59 | disposition home or self-care (01) ==
LOC: SDC 08:42 → AC 08:43
PROVIDERS: PCP Family Medicine; Referring Provider Urology; Visit Provider Urology
PROC: (CPT 52601; principal; 2021-07-06 11:45)
DX: N40.1 Benign prostatic hyperplasia with lower urinary tract symptoms (principal); E78.00 Pure hypercholesterolemia, unspecified; I10 Essential (primary) hypertension; E78.5 Hyperlipidemia, unspecified; Z87.891 Personal history of nicotine dependence; K21.9 Gastro-esophageal reflux disease without esophagitis; M19.90 Unspecified osteoarthritis, unspecified site; Z79.899 Other long term (current) drug therapy; N13.8 Other obstructive and reflux uropathy
CPT/HCPCS: 52601; 00914; 88305; 93005; J7120; J2405

== ENCOUNTER 2021-09-08 12:17 | Outpatient (CLI) | payer OTHER, SELFPAY ==
[2021-09-08 13:47] LABS: Amphetamine Urine VISTA NEGATIVE (<1000 ng/mL); Barbiturate Urine VISTA NEGATIVE (< 200 ng/mL); Benzodiazepine Urine VISTA NEGATIVE (< 200 ng/mL); Cocaine Urine VISTA NEGATIVE (< 300 ng/mL); Ecstacy Urine VISTA NEGATIVE (< 500 ng/mL); Methadone Urine VISTA NEGATIVE (< 300 ng/mL); PCP Urine VISTA NEGATIVE (< 25 ng/mL); THC Urine VISTA NEGATIVE (< 50 ng/mL); Vista UDS pH Range 5
== END 2021-09-08 23:59 | disposition home or self-care (01) ==
LOC: LAB 12:19
PROVIDERS: Referring Provider Anesthesiology Pain Medicine; Visit Provider Anesthesiology Pain Medicine
DX: F11.20 Opioid dependence, uncomplicated (principal)
CPT/HCPCS: 80307

== ENCOUNTER → 2022-08-09 | Outpatient (CLI) | payer OTHER, SELFPAY ==
[2022-08-09 18:13] LABS: Hemoglobin A1c 5.9 % (3.8-5.6)
[2022-08-09 18:18] LABS: Anion Gap 6 (5-15); BUN 18 mg/dL (7-18); BUN/Creat Ratio 19.7 RATIO (10-20); Chloride 106 mmol/L (98-107); Cholesterol 136 mg/dL (200); Creatinine, Serum 0.92 mg/dL (0.70-1.30); EST Glomerular Filtration Rate 88 mL/min (>60); Est Glom Filt Rate - Afr Amer 106 mL/min (>60); Glucose 100 mg/dL (74-106); High Density Lipoprotein 50 mg/dL; PSA,Total - Annual Screen 1.62 ng/mL (0.00-4.00); Potassium 4.4 mmol/L (3.5-5.1); Sodium Level 139 mmol/L (136-145); Triglycerides 65 mg/dL; Very Low Density Lipoprotein 13 mg/dL (5-40)
== END | disposition home or self-care (01) ==
LOC: MFPLAB 14:57
PROVIDERS: Visit Provider Family Medicine
DX: I10 Essential (primary) hypertension (principal); N40.0 Benign prostatic hyperplasia without lower urinary tract symptoms; R73.01 Impaired fasting glucose
CPT/HCPCS: 36415; 80048; 80061; 83036; 84153; G0103

== ENCOUNTER → 2022-11-14 | Outpatient (CLI) | payer OTHER, SELFPAY ==
[2022-11-14 12:12] LABS: PSA,Total- Diagnostic 1.42 ng/mL (0.0-4.0)
== END | disposition home or self-care (01) ==
PROVIDERS: PCP Family Medicine; Referring Provider Registered Nurse; Visit Provider Registered Nurse
DX: R97.20 Elevated prostate specific antigen [PSA] (principal)
CPT/HCPCS: 36415; 84153

== ENCOUNTER 2023-01-12 08:56 | Day surgery (SDC) | payer OTHER, SELFPAY ==
[2023-01-12] VITALS (7 sets, daily range): BP systolic 66–144; BP diastolic 48–90; PULSE 72–89; RESP 16; TEMP 36.4–37; O2SAT 92–95; BMI 31.1
[2023-01-12] MEDS: Lactated Ringers 1,000 ML 15 ML IV (09:48)
--- NOTE | 2023-01-12 10:30 | COLBX_PTH ---
PATIENT: GEETA CURTIS LOC: [facility] U#:[id number] AGE/SX: 67/M ROOM: RE01/12/[address]: Dr. Emery Correa MD : 1955 BED: DIS: 01/12/2023 SPEC #: [id number] RECD: 01/12/23 14:20 STATUS: LULI REDeangelo #: [id number] GLORIA: 01/12/23 10:[address]: Emery Correa DEPT: SURGICAL PATHOLOGY RECD BY: Stephen Polo ENTERED: 01/15/23 07:09 SP TYPE: COLON BX OTHR DR: Mitzi Padilla DO Tissues: Rectum, NOS Procedures: Surgery Specimen Level IV HEADER OPERATION: Colonoscopy (MAC) PRE-OP DIAGNOSIS: Screening TISSUE SUBMITTED: Rectal polyp MICROSCOPIC DIAGNOSIS Rectal polyp, biopsy: Tubular adenoma. CUONG:marla 01/16/2023 MICROSCOPIC DESCRIPTION Slides are reviewed. GROSS DESCRIPTION Received in fixative is one container labeled with the patient's name and designated rectal polyp. The specimen consists of a carrasquillo-pink polyp measuring 0.6 x 0.5 x 0.4 cm. The specimen is totally submitted in one cassette. / SJ:marla 01/15/2023 TC:1 CPT: 42881
--- NOTE | 2023-01-12 10:53 | HP.PCM_ITS ---
History and Physical Date of Admission: 01/12/23 Intake Vital Signs 12/07/2312:25 Height 6 ft Weight: 236 lb BMI 32.0 BP 146/85 H Blood Pressure Location Rt brachial Position Sitting Respiration 19 H Pulse 74 Pulse Source Monitor Intake Visit Reasons: colonoscopy-recall letter Chief Complaint: discuss c-scope Allergies streptomycin [Streptomycin] Allergy (Severe, Verified 11/01/22 08:05) Lost hearingTetanus Vaccines and Toxoid [Tetanus Vaccines & Toxoid] Allergy (Severe, Verified 11/01/22 08:05) Anaphylaxis Medications atorvastatin 40 mg tablet 40 mg PO DAILY 12/15/19 [History Confirmed 12/07/22] lisinopril 20 mg tablet 20 mg PO DAILY 12/15/19 [History Confirmed 12/07/22] oxycodone-acetaminophen 5 mg-325 mg tablet (Percocet) 1 ea PO PRN PRN Pain Or Fever 12/17/19 [History Confirmed 12/07/22] simethicone 125 mg chewable tablet 125 mg PO PRN PRN Gas 12/17/19 [History Confirmed 12/07/22] omeprazole 20 mg capsule,delayed release 20 mg PO DAILY 12/23/19 [History Confirmed 12/07/22] biotin 2,500 mcg capsule 2,500 mcg PO DAILY 01/26/21 [History Confirmed 12/07/22] cholecalciferol (vitamin D3) 25 mcg (1,000 unit) capsule 25 mcg PO DAILY 01/26/21 [History Confirmed 12/07/22] multivitamin 1 tab PO DAILY 01/26/21 [History Confirmed 12/07/22] turmeric 400 mg capsule 400 mg PO DAILY 01/26/21 [History Confirmed 12/07/22] [facility] Medical History Acid reflux Arthritis Back pain Bloating Bradycardia Cardiology follow-up encounter [place] Effusion of right knee joint Essential (primary) hypertension Former smoker Gastric reflux GERD (gastroesophageal reflux disease) High cholesterol History of echocardiogram History of steroid therapy History of stress test Hyperlipidemia Hypertension Injury of head and neck Knee pain Migraine headache Neck pain Osteoarthritis Prostate disease Shortness of breath on exertion Shoulder pain 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 He had an attempted colonoscopy and he became bradycardic enough to cancel the procedure. Subsequently he did take a Cologuard which was negative. He is due again and he would like another colonoscopy instead of Cologuard. ROS General General: Yes weight change; No appetite, fatigue, colon cancer, breast cancer or weakness HEENT HEENT: Yes eye surgery; No difficulty swallowing, eye injury, swollen glands or hoarseness Endo Endocrine: No thyroid disease, diabetes mellitus, thyroid cancer, Hair loss, heat intolerance or cold intolerance Skin Skin: Yes rash; No changing moles Breast Breast: No left breast lump, right breast lump, nipple discharge, breast pain, abnormal mammogram, abnormal US or breast enlargement Musc Musculoskeletal: Yes arthritis; No back problems, rheumatoid arthritis, gout or joint pain Cardio Cardiovascular: No murmur, pacemaker, heart disease, atrial fibrillation, high blood pressure, heart attack, heart stent, palpitations, shortness of breat with exertion or chest pain Psych Psychiatric: No depression, anxiety or hearing voices Resp Respiratory: No shortness of breath, No sleep apnea, No cough, No COPD, No asthma, No emphysema and No wheezing Gastro Gastrointestinal: No abdominal pain, No nausea or vomiting, No diarrhea, No constipation, No blood in stool, No acid reflux, No hemorrhoids, No ulcers, No gallbladder problem and No black,tarry stools Liam Hematologic: No blood thinners, No blood disorders, No bleeding, No anemia and No blood clots Neuro Neurologic: No system reviewed and no additional complaints, except as documented, No as per HPI, No abnormal gait, No abnormal hearing, No abnormal movements, No abnormal speech, No behavioral changes, No burning sensations, No confusion, No convulsions, No disequilibrium, No dizziness, No localized weakness, No frequent falls, No headache(s), No lack of coordination, No loss of vision, No memory loss, No numbness, No other visual disturbances, No radicular pain, No restless legs, No sensory deficit, No syncope, No tingling, No tremor(s), No weakness and No other Exam Const General: cooperative Orientation: alert and oriented x3 HENMT Head: normal to inspection Neck Neck: normal visual inspection and full ROM Chest Chest palpation & inspection: normal inspection of the chest Resp Effort & Inspection: normal respiratory effort Auscultation: clear to auscultation bilaterally Cardio Rate: regular rate Rhythm: regular rhythm GI Inspection: non-distended Palpation: soft and nontender Skin General: no rashes or lesions noted Neuro General: patient alert and patient oriented x3 Extrem General: full ROM Psych Appearance: grossly normal Mental Status: mental status grossly normal Assessment and Plan Assessment and Plan (1) Screen for colon cancer: Status: Acute Plan: Patient's last colonoscopy was aborted due to bradycardia. He had negative Cologuard but instead of repeating Cologuard he would like to have a colonoscopy. I will reattempt colonoscopy at this time. I explained endoscopy in detail to the patient. I explained the risks including but not limited to stroke or heart attack with anesthesia, perforation of the GI tract, bleeding, infection. I explained that any of these could necessitate further emergency surgery. The patient understands and all questions were answered sufficiently. The patient wishes to proceed with procedure. Emery Correa MD Pager: [facility] [address] [place] [address], [address] [place] [address] Office: I have examined the patient and the H&P has been reviewed. There are no clinical changes since date of exam.
--- NOTE | 2023-01-12 11:33 | OP.CCLET_ITS ---
01/12/2023 Mitzi Padilla, Do Re : Colonoscopy procedure for Schuyler Mitchell Dear Randy This procedure was performed on Thursday, January 12, 2023. My impressions and recommendations are as follows: Impressions : - One polyp in the rectum, removed with a hot snare. Resected and retrieved. - The examination was otherwise normal on direct and retroflexion views. Recommendations : - Discharge patient to home. - Resume previous diet. - Continue present medications. - Await pathology results. - Repeat colonoscopy in 5 years for surveillance. My findings are described in the full procedure note, which is enclosed. If I can be of further assistance, please feel free to contact me at Doctor phone number(s): , Work: . Sincerely, Emery Correa MD 01/12/2023 11:32:49 AM This report has been signed electronically.
--- NOTE | 2023-01-12 11:33 | OP.COLON_ITS ---
Patient Name: Schuyler Mitchell Procedure Date: 01/12/2023 10:58 AM Date of : 1955 Age: 67 Procedure: Colonoscopy Indications: Positive Cologuard test Providers: Emery Correa MD Medicines: Monitored Anesthesia Care Patient Profile: This is a 67 year old male. Refer to note in patient chart for documentation of history and physical. Last Colonoscopy: more than 10 years ago. Complications: No immediate complications. Procedure: Pre-Anesthesia Assessment: - Prior to the procedure, a History and Physical was performed, and patient medications and allergies were reviewed. The patient's tolerance of previous anesthesia was also reviewed. The risks and benefits of the procedure and the sedation options and risks were discussed with the patient. All questions were answered, and informed consent was obtained. Prior Anticoagulants: The patient has taken no previous anticoagulant or antiplatelet agents. After reviewing the risks and benefits, the patient was deemed in satisfactory condition to undergo the procedure. After I obtained informed consent, the scope was passed under direct vision. Throughout the procedure, the patient's blood pressure, pulse, and oxygen saturations were monitored continuously. The was introduced through the anus and advanced to the cecum, identified by appendiceal orifice and ileocecal valve. The colonoscopy was performed without difficulty. The patient tolerated the procedure well. The quality of the bowel preparation was good. Scope In: 11:09:26 AM Scope Withdrawal Time 0 hours 6 minutes 30 seconds Scope Out: 11:23:28 AM Total Procedure Duration Time 0 hours 14 minutes 2 seconds Findings: A polyp was found in the rectum. The polyp was removed with a hot snare. Resection and retrieval were complete. The exam was otherwise without abnormality on direct and retroflexion views. Impression: - One polyp in the rectum, removed with a hot snare. Resected and retrieved. - The examination was otherwise normal on direct and retroflexion views. Recommendation: - Discharge patient to home. - Resume previous diet. - Continue present medications. - Await pathology results. - Repeat colonoscopy in 5 years for surveillance. Procedure Code(s): --- Professional --- 91299, Colonoscopy, flexible; with removal of tumor(s), polyp(s), or other lesion(s) by snare technique Diagnosis Code(s): --- Professional --- K62.1, Rectal polyp R19.5, Other fecal abnormalities CPT copyright 2017 [employer]. All rights reserved. The codes documented in this report are preliminary and upon data processing supervisor review may be revised to meet current compliance requirements. Emery Correa MD 01/12/2023 11:32:49 AM This report has been signed electronically. Number of Addenda: 0 Note Initiated On: 01/12/2023 10:58 AM
== END 2023-01-12 12:10 | disposition home or self-care (01) ==
LOC: EN 09:02 → AC 09:03
PROVIDERS: PCP Family Medicine; Referring Provider Family Medicine; Visit Provider Surgery
PROC: 0DJD8ZZ Inspection of Lower Intestinal Tract, Via Natural or Artificial Opening Endoscopic (ICD-10-PCS; CPT 45378; principal; 2023-01-12 10:25)
DX: Z12.11 Encounter for screening for malignant neoplasm of colon (principal); Z87.891 Personal history of nicotine dependence; I10 Essential (primary) hypertension; E78.00 Pure hypercholesterolemia, unspecified; D12.8 Benign neoplasm of rectum; Z79.899 Other long term (current) drug therapy
CPT/HCPCS: 45385; 88305; J7120; J2405

== ENCOUNTER → 2023-02-09 | Outpatient (CLI) | payer OTHER, SELFPAY ==
[2023-02-09 10:22] LABS: ALB/GLOB Ratio 1.1 RATIO (0.9-2.4); AST(SGOT) 20 U/L (15-37); Alanine Aminotransfer ALT/SGPT 30 U/L (16-61); Albumin, Serum 3.9 g/dL (3.2-5.0); Alkaline Phosphatase 82 U/L (45-117); Anion Gap 3 (5-15); BUN 13 mg/dL (7-18); BUN/Creat Ratio 14.8 RATIO (10-20); Calcium,Total 9.5 mg/dL (8.5-10.1); Chloride 106 mmol/L (98-107); Cholesterol 127 mg/dL (200); Creatinine, Serum 0.88 mg/dL (0.70-1.30); EST Glomerular Filtration Rate 92 mL/min (>60); Est Glom Filt Rate - Afr Amer 111 mL/min (>60); Globulin 3.5 g/dL (2.2-4.2); Glucose 108 mg/dL (74-106); High Density Lipoprotein 52 mg/dL; Potassium 4.1 mmol/L (3.5-5.1); Protein, Total 7.4 g/dL (6.4-8.2); Sodium Level 138 mmol/L (136-145); Triglycerides 141 mg/dL; Very Low Density Lipoprotein 28 mg/dL (5-40)
== END | disposition home or self-care (01) ==
LOC: MFPLAB 08:25
PROVIDERS: PCP Family Medicine; Visit Provider Family Medicine
DX: I10 Essential (primary) hypertension (principal)
CPT/HCPCS: 36415; 80053; 80061

== ENCOUNTER → 2023-04-24 | Outpatient (CLI) | payer OTHER, SELFPAY ==
[2023-04-24 11:06] LABS: Amphetamine Urine VISTA NEGATIVE (<1000 ng/mL); Barbiturate Urine VISTA NEGATIVE (< 200 ng/mL); Benzodiazepine Urine VISTA NEGATIVE (< 200 ng/mL); Cocaine Urine VISTA NEGATIVE (< 300 ng/mL); Ecstacy Urine VISTA NEGATIVE (< 500 ng/mL); Methadone Urine VISTA NEGATIVE (< 300 ng/mL); PCP Urine VISTA NEGATIVE (< 25 ng/mL); THC Urine VISTA NEGATIVE (< 50 ng/mL); Vista UDS pH Range 5
== END | disposition home or self-care (01) ==
PROVIDERS: PCP Family Medicine; Referring Provider Anesthesiology Pain Medicine; Visit Provider Anesthesiology Pain Medicine
DX: F11.20 Opioid dependence, uncomplicated (principal)
CPT/HCPCS: 80307

== ENCOUNTER → 2023-08-15 | Outpatient (CLI) | payer OTHER, SELFPAY ==
[2023-08-15 10:29] LABS: ALB/GLOB Ratio 1.1 RATIO (0.9-2.4); AST(SGOT) 27 U/L (15-37); Alanine Aminotransfer ALT/SGPT 31 U/L (16-61); Albumin, Serum 3.9 g/dL (3.2-5.0); Alkaline Phosphatase 97 U/L (45-117); Anion Gap 9 (5-15); BUN 9 mg/dL (7-18); BUN/Creat Ratio 9.1 RATIO (10-20); Calcium,Total 9.5 mg/dL (8.5-10.1); Chloride 106 mmol/L (98-107); Cholesterol 106 mg/dL (200); Creatinine, Serum 0.98 mg/dL (0.70-1.30); EST Glomerular Filtration Rate 80 mL/min (>60); Est Glom Filt Rate - Afr Amer 97 mL/min (>60); Globulin 3.7 g/dL (2.2-4.2); Glucose 155 mg/dL (74-106); High Density Lipoprotein 53 mg/dL; Potassium 4.1 mmol/L (3.5-5.1); Protein, Total 7.6 g/dL (6.4-8.2); Sodium Level 139 mmol/L (136-145); Triglycerides 58 mg/dL; Very Low Density Lipoprotein 12 mg/dL (5-40)
== END | disposition home or self-care (01) ==
LOC: MFPLAB 08:27
PROVIDERS: PCP Family Medicine; Visit Provider Family Medicine
DX: E78.5 Hyperlipidemia, unspecified (principal)
CPT/HCPCS: 36415; 80053; 80061

== ENCOUNTER → 2023-11-19 | Outpatient (CLI) | payer OTHER, SELFPAY ==
[2023-11-19 10:18] LABS: PSA,Total - Annual Screen 1.65 ng/mL (0.00-4.00)
== END | disposition home or self-care (01) ==
LOC: LAB 08:08
PROVIDERS: PCP Family Medicine; Visit Provider Urology
DX: Z12.5 Encounter for screening for malignant neoplasm of prostate (principal)
CPT/HCPCS: 36415; 84153; G0103

== ENCOUNTER → 2024-02-20 | Outpatient (CLI) | payer OTHER, SELFPAY ==
[2024-02-20 10:32] LABS: ALB/GLOB Ratio 1.2 RATIO (0.9-2.4); AST(SGOT) 33 U/L (15-37); Alanine Aminotransfer ALT/SGPT 35 U/L (16-61); Albumin, Serum 4.1 g/dL (3.2-5.0); Alkaline Phosphatase 97 U/L (45-117); Anion Gap 5 (5-15); BUN 13 mg/dL (7-18); BUN/Creat Ratio 15.4 RATIO (10-20); Calcium,Total 9.9 mg/dL (8.5-10.1); Chloride 107 mmol/L (98-107); Cholesterol 138 mg/dL (200); Creatinine, Serum 0.84 mg/dL (0.70-1.30); EST Glomerular Filtration Rate 96 mL/min (>60); Est Glom Filt Rate - Afr Amer 116 mL/min (>60); Globulin 3.3 g/dL (2.2-4.2); Glucose 109 mg/dL (74-106); High Density Lipoprotein 52 mg/dL; Potassium 4.5 mmol/L (3.5-5.1); Protein, Total 7.4 g/dL (6.4-8.2); Sodium Level 138 mmol/L (136-145); Triglycerides 78 mg/dL; Very Low Density Lipoprotein 16 mg/dL (5-40)
== END | disposition home or self-care (01) ==
LOC: MFPLAB 08:56
PROVIDERS: PCP Family Medicine; Visit Provider Family Medicine
DX: I10 Essential (primary) hypertension (principal)
CPT/HCPCS: 36415; 80053; 80061

== ENCOUNTER → 2024-05-20 | Outpatient (CLI) | payer OTHER, SELFPAY ==
[2024-05-20 11:08] LABS: Amphetamine Urine VISTA NEGATIVE (<1000 ng/mL); Barbiturate Urine VISTA NEGATIVE (< 200 ng/mL); Benzodiazepine Urine VISTA NEGATIVE (< 200 ng/mL); Cocaine Urine VISTA NEGATIVE (< 300 ng/mL); Ecstacy Urine VISTA NEGATIVE (< 500 ng/mL); Methadone Urine VISTA NEGATIVE (< 300 ng/mL); PCP Urine VISTA NEGATIVE (< 25 ng/mL); THC Urine VISTA NEGATIVE (< 50 ng/mL); Vista UDS pH Range 5
== END | disposition home or self-care (01) ==
LOC: LAB 09:52
PROVIDERS: PCP Family Medicine; Referring Provider Anesthesiology Pain Medicine; Visit Provider Anesthesiology Pain Medicine
DX: F11.20 Opioid dependence, uncomplicated (principal)
CPT/HCPCS: 80307

== ENCOUNTER → 2024-08-13 | Outpatient (CLI) | payer OTHER, SELFPAY ==
[2024-08-13 10:43] LABS: Anion Gap 7 (5-15); BUN 17 mg/dL (7-18); BUN/Creat Ratio 18.3 RATIO (10-20); Calcium,Total 9.9 mg/dL (8.5-10.1); Chloride 105 mmol/L (98-107); Creatinine, Serum 0.93 mg/dL (0.70-1.30); EST Glomerular Filtration Rate 86 mL/min (>60); Est Glom Filt Rate - Afr Amer 104 mL/min (>60); Glucose 96 mg/dL (74-106); Potassium 4.1 mmol/L (3.5-5.1); Sodium Level 138 mmol/L (136-145)
== END | disposition home or self-care (01) ==
LOC: MFPLAB 08:37
PROVIDERS: PCP Family Medicine; Referring Provider Family Medicine; Visit Provider Family Medicine
DX: E78.5 Hyperlipidemia, unspecified (principal)
CPT/HCPCS: 36415; 80048

== ENCOUNTER → 2024-11-13 | Outpatient (CLI) | payer OTHER, SELFPAY ==
[2024-11-13 10:41] LABS: PSA,Total - Annual Screen 1.09 ng/mL (0.02-4.00)
== END | disposition home or self-care (01) ==
LOC: LAB 08:22
PROVIDERS: PCP Family Medicine; Referring Provider Nurse Practitioner; Visit Provider Nurse Practitioner
DX: Z12.5 Encounter for screening for malignant neoplasm of prostate (principal)
CPT/HCPCS: 36415; 84153; G0103

== ENCOUNTER → 2025-02-11 | Outpatient (CLI) | payer OTHER, SELFPAY ==
[2025-02-11 11:03] LABS: Creatinine, Urine (random) 36.80 mg/dL (39.00-259.00); Microalbumin,Random Urine < 12.0 mg/L (<20 mg/L)
[2025-02-11 11:07] LABS: AST(SGOT) 30 U/L (<=37); Alanine Aminotransfer ALT/SGPT 22 U/L (<=46); Albumin, Serum 4.6 g/dL (3.4-4.8); Alkaline Phosphatase 79 U/L (40-129); Anion Gap 11 (5-15); BUN 11 mg/dL (4-19); BUN/Creat Ratio 13.5 RATIO (10-20); Calcium,Total 10.0 mg/dL (7.6-11.0); Carbon Dioxide 24.6 mmol/L (21.0-32.0); Chloride 102 mmol/L (98-108); Cholesterol 119 mg/dL (<=200); Globulin 2.6 g/dL (2.2-4.2); Glucose 102 mg/dL (70-99); Low Density Lipoprotein Calc. 52 mg/dL; Potassium 4.3 mmol/L (3.3-5.1); Triglycerides 85 mg/dL; Very Low Density Lipoprotein 17 mg/dL (5-40); cholesterol:hdl ratio screen 2.38
== END | disposition home or self-care (01) ==
LOC: MFPLAB 08:20
PROVIDERS: PCP Family Medicine; Referring Provider Family Medicine; Visit Provider Family Medicine
DX: E78.5 Hyperlipidemia, unspecified (principal)
CPT/HCPCS: 36415; 80053; 80061; 82043; 82570

== ENCOUNTER → 2025-03-05 | Outpatient (CLI) | payer OTHER, SELFPAY ==
[2025-03-05 13:25] LABS: Barbiturate Urine NEGATIVE (< 200 ng/mL); Benzodiazepine Urine NEGATIVE (< 200 ng/mL); PCP Urine NEGATIVE (< 25 ng/mL); THC Urine NEGATIVE (< 50 ng/mL)
== END | disposition home or self-care (01) ==
LOC: LAB 11:33
PROVIDERS: PCP Family Medicine; Referring Provider Anesthesiology Pain Medicine; Visit Provider Anesthesiology Pain Medicine
DX: F11.20 Opioid dependence, uncomplicated (principal)
CPT/HCPCS: 80307

== ENCOUNTER → 2025-03-30 | Outpatient (CLI) | payer OTHER, SELFPAY ==
--- NOTE | 2025-03-30 15:13 | RAD_ITS ---
PROCEDURE: L/S SPINE W BEND MIN 6 VW 03/30/2025 REASON FOR EXAM: BACK PAIN TECHNIQUE: Procedure Code: [id number] Modality: DX Procedure: 6 view lumbar spine series including bilateral oblique views and lateral flexion and extension views. COMPARISON: None provided. RAD/L/S Spine w Bend Min 6 Vw IMPRESSION: Left and probably also right L5 spondylolysis is noted. No evidence of significant spondylolisthesis. No dynamic instability is seen on lateral flexion and extension views. Degenerative changes of the lumbar spine are seen, most clearly at L5-S1, with moderately severe disc narrowing and vertebral body osteophytosis is noted. Lower lumbar posterior facet hypertrophy is also seen. Minimal sacroiliac join t degenerative changes are also seen. The visualized lower thoracic spine shows at least mild multilevel degenerative disc disease. Right upper quadrant abdominal surgical clips are seen. Reading Location: [id number]
== END | disposition home or self-care (01) ==
LOC: MTRAD 15:12
PROVIDERS: PCP Family Medicine; Referring Provider Family Medicine; Visit Provider Family Medicine
DX: M54.9 Dorsalgia, unspecified (principal)
CPT/HCPCS: 72114

== ENCOUNTER 2025-05-20 08:00 | Outpatient (RCR) | payer OTHER, SELFPAY ==
--- NOTE | 2025-05-13 08:34 | HP.PTEVAL ---
Patient's Visit Information Visit Information Visit Information: GEETA CURTIS is a 70 year old M referred to Physical Therapy by Dr. Alon Cho MD with a diagnosis of LBP. Date of Evaluation: 05/13/25 Physical Therapist: Raymundo Buitrago, PT, ATC Visit Plan Frequency: 1x/Week Duration: 1 Week Plan: Pt was issued SKTC/DKTC ex's. Issue and instruct pt on HEP of L/S stab ex's on next visit Subjective Subjective: Pt reports he has had LBP chronically for 30 years. Pt notes he has been to many doctors and chiropractors over this span. Pt reports he has had injections in the past that have helped. 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 Pt notes approximately one month ago, his back became really sore so he went to his doctor and received x rays. Pt notes today he has LBP and spasms on both sides of his LB, with the right side being worse than his L side. Pt notes he is very active with yard work, and transplanting his plants causes him pain. Pt reports his greatest pain is when he has been sitting and attempts to stand. Pt denies tingling or numbness in his LE's. Pt denies sleep difficulty at this time secondary to pain. 0/10 pain while sitting here in the clinic, 10/10 pain at worst. Pain LBP: Pain Intensity (Out of 10): 0 Pain Intensity Range: 10 Objective Objective: Neuro: B LE sensation is WNL to light touch MMT: B LE's are strong and equal throughout ROM: Pt is minimally limited with extension. All other motions are WFL Repeated movements: RFIS 10x2 NE. RAUL 10x2 increased pain. SKTC/DKTC 10 sec x 3 ea NE Goals Goal 1:: I with HEP after 2 visits Goal Time Frame: 1 Week Rehabilitation Potential Physical Therapy Diagnosis: Pt has LBP and limited L/S ROM secondary to degenerative changes in the L/S Rehabilitation Potential: Good Anticipated Interventions Patient/Client Instruction: Educate patient on: Condition and Plan of Care For the Purpose of:: To improve self management Therapeutic Exercise to Include: Strength training, Endurance training, Active ROM and Dynamic Lumbar Stabilization For the Purpose of:: To decrease pain, To increase ROM and To improve muscle performance and motor function Text: Thank you for the opportunity to evaluate your patient. For Medicare and Medicare HMO plans, please review the plan of care and approve it. It will need to be FAXED BACK to us at [phone] for Medicare purposes. For Medicare only, by signing this I certify the plan of care. Please let me know if there are questions or concerns regarding this plan of care. Physician Signature: Date:
--- NOTE | 2025-05-20 08:55 | HP.PTDCSUM ---
Discharge Summary D/C summary: It has been my pleasure to treat GEETA CURTIS referred by Dr. Alon Cho MD, with the diagnosis of LBP for a total of 2 visit(s). Discharge Date: Please see the following information for a summary of their discharge status. Subjective Subjective: Pt reports he has been compliant with HEP. Pain comes and goes. Pain LBP: Pain Intensity (Out of 10): 3 Objective Objective/Function: Pt is now I with HEP Goals Goal 1:: I with HEP after 2 visits Plan Plan: Discharge to HEP D/C Information d/c sentence: If there are questions or concerns regarding this patient's physical therapy, please feel free to call me at [phone]. Thank you for the referral of this patient. Sincerely, Raymundo Buitrago, PT, ATC
== END 2025-05-20 19:00 | disposition home or self-care (01) ==
LOC: PT 08:00
PROVIDERS: PCP Family Medicine; Referring Provider Family Medicine; Visit Provider Family Medicine
DX: M54.9 Dorsalgia, unspecified (principal)
CPT/HCPCS: 97110; 97161